=== PATIENT | female | born 1945 | race African-American/Black ===

== ENCOUNTER → 2016-11-13 | Outpatient (CLI) | payer OTHER ==
[~2016-11-13] VITALS: Ht 157.5 cm; Wt 67.6 kg
[~2016-11-13] MED LIST: ASPIRIN EC81 M1 PO; CENTRUM SILVER1 EAC4 PO; CENTRUM SILVER1 EAC6 PO; FLONASE 0.05%50 MCG NASAL; HYDROCODON-ACE1 EACH PO; HYDROCODONE-AP1 EAC6 PO; LIPITOR10 MG PO; LIVALO1 MG PO; MACROBID 100 M100 M1 PO; MEDROLDOSEPACK PO; METAMUCIL0.52 GM PO; MIRALAX255 GM PO; MIRO; NAPROSYN PO; OMEPRAZOLE40 MG PO; PERCOCET 5-3251 EACH PO; PREDNISONE 20 M20 MG PO; PYRIDIUM200 MG PO; RED YEAST RICE600 MG PO; SIMVASTATIN20 MG PO; TRAMADOL 50 MG50 MG PO; TRAZODONE HCL100 MG PO; VITAMIN B-12500 MCG PO; VITAMIN D-32000 UNIT PO; VITAMIN D1000 UNI1; ZANAFLEX4 MG PO; ZOFRAN ODT4 MG PO
--- NOTE | ~2016-11-13 | HPC ---
[facility] [place] [address] PAIN MANAGEMENT CONSULTATION Name: DEYVI BASURTO AVANI Room #: REG Amy Carney#: [id number] Admission: 11/13/16 Attend Phys: Pasha Liriano DO Discharge: Date of : 46 Report #: [id number] THIS REPORT FOR: //name// CC: Libia Liriano HISTORY OF PRESENT ILLNESS: The patient is a very pleasant 70-year-old female typically treated by Dr. Toi Valdes for lumbar radiculopathy secondary to spinal stenosis, component of myofascial pain. Last seen in the pain clinic 09/10/2016. She had an epidural injection at L5-S1 at that time. She prior had a caudal epidural injection in April, which she felt afforded little more relief, though she typically gets good relief with the injection. She had had a total of 5 injections in 2015, October, December, February, April and August. She returns to the pain clinic noting that the last injection again did not afford as good relief as her prior caudal injection, she reports only about 40% for 1 month, typically caudal injections have afforded better relief and longer closer to 3 months. The patient notes pain is in the low back, right greater than left leg. She had a fall a few months ago, lost her footing, did not have any leg weakness or "legs giving out." Rates pain at 4/10 today. Note she does get some relief with medication including, tizanidine 4 mg once or twice a day. Does have a component of muscle strain and tenderness secondary to the slip and fall. PHYSICAL EXAMINATION: Shows a 70-year-old female with BMI of 27.2 kilograms per meter squared. Vital signs are stable as noted in the EMR. She does not use tobacco products. Cranial nerves 2-12 are grossly intact. Pupils equal, reactive to light and accommodation. Extraocular muscles are intact. She does have some diffuse muscle tenderness in the mid to low back area from about shoulder blades down. No discrete trigger points are noted, but does have myofascial pain component here. Rises from a chair using the armrest, modestly antalgic gait, positive straight leg raise on the right with slight decreased strength here. Reviewing MRI from 11/02/2016 notes 4-5 mm anterolisthesis at L5-S1 with and annular tear, canals narrowed to about 5 cm, L4-L5 notes ligamentum flavum hypertrophy with moderate to severe facet arthrosis bilateral and synovitis. Canal is about 6.5 cm. L3-L4 notes ligamentum flavum hypertrophy displacing the L3 nerve roots on the right. This is not associated with significant clinical pathology at this time (L3 root pathology). The patient appears to have more L5 related pathology at this time. ASSESSMENT: 1. Myofascial pain. Recommendation: We will renew tizanidine and add naproxen sodium 375 mg 60 tablets b.i.d. [address] [address] PAIN MANAGEMENT CONSULTATION Name: DEYVI BASURTO AVANI Room #: REG DORY Carney#: [id number] Admission: 11/13/16 Attend Phys: Pasha Liriano DO Discharge: Date of : 46 Report #: [id number] 2. Lumbar radiculopathy secondary to spinal stenosis, acute exacerbation of lumbar radicular pain. Recommendation: Caudal epidural injection under fluoroscopy today. 3. Follow up as needed with Dr. Valdes. PROCEDURE NOTE: Caudal injection under fluoroscopy. PROCEDURE: After written informed consent was obtained, the patient was taken to the fluoroscopy suite and placed in prone position. After sterile prep and drape, skin wheal was raised. A 22-gauge epidural Tuohy needle was placed through the sacroiliitis and into the caudal epidural space. Negative aspiration was accomplished; 1 mL of Omnipaque was injected, which showed spread within the epidural space. This was followed with 80 mg of triamcinolone plus 4 mL of 1% preservative-free Xylocaine. Needle was removed. The area was cleansed, Band-Aids applied. The patient monitored for an appropriate period of time, discharged in good and stable condition. <ELECTRONICALLY SIGNED> By: Pasha Liriano DO 11/16/16 1004 1619 0031 Pasha Liriano DO /nt
[2016-11-13 09:12] VITALS: BP 127/69
== END | disposition home or self-care (01) ==
LOC: PAIN 07:00
DX: M54.16 Radiculopathy, lumbar region (principal); M46.1 Sacroiliitis, not elsewhere classified; M48.06 Spinal stenosis, lumbar region

== ENCOUNTER → 2017-01-11 | Outpatient (CLI) | payer OTHER ==
[~2017-01-11] VITALS: Ht 157.5 cm; Wt 67.0 kg
--- NOTE | ~2017-01-11 | HPC ---
[facility] [place] [place] [address] PAIN MANAGEMENT CONSULTATION Name: DEYVI BASURTO Room #: REG Amy SmithTrueGodwin.#: [id number] Admission: 01/11/17 Attend Phys: Toi Valdes MD Discharge: Date of : 47 Report #: [id number] THIS REPORT FOR: //name// CC: Toi Jacobs DATE OF SERVICE: 01/11/2017 DATE OF REGISTRATION: 01/11/2017. REASON FOR VISIT: Followup visit for low back pain with radiculopathy. SUBJECTIVE: The patient returns to pain clinic today for followup. She has ongoing lumbar radiculopathy. She has had both caudal and epidural injections. Today, her pain is higher up in her back and radiates down more in the L4-L5 distribution. With pain medication, her pain has reduced, but she does not want to keep taking it. She recently fell down from steps helping her mother and aunt the steps. MEDICATIONS: Naprosyn, tizanidine, simvastatin, omeprazole, Metamucil, vitamin D3, and aspirin. PHYSICAL EXAMINATION: GENERAL: Pleasant, alert and oriented. VITAL SIGNS: Blood pressure is 138/65, heart rate is 73, BMI is 27. She has pain and tenderness across her low back. Positive straight leg raising bilaterally. Sensation is intact. Mild weakness noted bilaterally in lower extremities. IMPRESSION: Chronic low back pain with radiculopathy secondary to spinal stenosis, recent exacerbation. PLAN: Epidural steroid injection under fluoroscopic guidance. DESCRIPTION OF PROCEDURE: He was taken to fluoroscopic suite for treatment, placed prone, skin prepped with ChloraPrep. Skin was anesthetized over the L4-L5 interspace. A 20-gauge Tuohy epidural needle advanced into the epidural space with loss of resistance technique. There was no blood in her CSF aspirated. Then, 1 mL of Omnipaque injected. Good spread of dye observed in the epidural space followed by 3 mL of 1% lidocaine mixed with 80 mg of [facility] [address] [place] [address] PAIN MANAGEMENT CONSULTATION Name: DEYVI BASURTO Room #: REG [facility]#: [id number] Admission: 01/11/17 Attend Phys: Toi Valdes MD Discharge: Date of : 46 Report #: [id number] triamcinolone. She tolerated the procedure well and was observed for 45 minutes and discharged. Followup visit planned as needed. By: [id number] [id number] Toi Valdes MD /nt
[2017-01-11 11:25] VITALS: BP 138/65
== END | disposition home or self-care (01) ==
LOC: PAIN 06:53
DX: M48.06 Spinal stenosis, lumbar region (principal)

== ENCOUNTER → 2017-03-31 | Outpatient (CLI) | payer OTHER ==
[~2017-03-31] VITALS: Ht 157.5 cm; Wt 66.7 kg
[~2017-03-31] MED LIST changes: +AMITRIPTYLINE H10 M3 PO
[2017-03-31 10:50] VITALS: BP 109/44
== END | disposition home or self-care (01) ==
LOC: PAIN 07:08
DX: M51.16 Intervertebral disc disorders with radiculopathy, lumbar region (principal); M48.06 Spinal stenosis, lumbar region; G89.29 Other chronic pain; Z88.8 Allergy status to other drugs, medicaments and biological substances; Z79.82 Long term (current) use of aspirin; Z98.890 Other specified postprocedural states

== ENCOUNTER → 2017-05-19 | Outpatient (CLI) | payer OTHER ==
[~2017-05-19] VITALS: Ht 157.5 cm; Wt 67.0 kg
--- NOTE | ~2017-05-19 | HPC ---
[facility] [address] [place] [address] PAIN MANAGEMENT CONSULTATION Name: DEYVI BASURTO AVANI Room #: REG DORY SmithTrueGodwin.#: [id number] Admission: 05/19/17 Attend Phys: Toi Valdes MD Discharge: Date of : 46 Report #: [id number] THIS REPORT FOR: //name// CC: Toi Jacobs DATE OF SERVICE: 05/19/2017 Followup visit for chronic back pain with radiculopathy. HISTORY OF PRESENT ILLNESS: The patient returns to pain clinic today for an injection. She responded favorably to epidural injections performed on an intermittent basis. Her response has been well-documented. She oftentimes receives an excessive 80% to 90% pain relief. Today, she has pain in her mid to low back that radiates around the right T10 and through about T11 distribution. She said that she was helping aunty few months ago when she slid down some steps has had increased back pain with radiation ever since. Pain is a 4/10. She has tried ice, heat, gentle exercises without success. She has been using Tylenol and tizanidine to try and help. Given her previous good response to epidural injection she is here today hopefully that we can provide her with some additional relief with an injection. Consider repeating x-rays today. We will see how she responds to treatment before. MEDICATIONS: Amitriptyline, naproxen, tizanidine, simvastatin, Tylenol, omeprazole, vitamin B12, Metamucil, aspirin. ALLERGIES: CODEINE. PHYSICAL EXAMINATION: She is a reyes 71-year-old pleasant, alert and oriented. No signs of depression, anxiety or overmedication. Blood pressure is 126/61, heart rate 77, respirations 16. She is 5 feet 2 inches, BMI is 27.0. She is able to move from sitting to standing position and ambulate without antalgic features. Examination of the spine reveals midline tenderness and then thoracolumbar junction. Forward flexion and extension both radiate pain around into the right chest wall. There is no local tenderness in rib cage or in the muscles. Sensation is intact. IMPRESSION: Chronic back pain with radiculopathy. She has degenerative disk noted T12-L1 as well as significant lower degenerative disease at L4-L5 and L5-S1. RECOMMENDATIONS: T12-L1 epidural steroid injection under fluoroscopic guidance. Procedure explained the risks and benefits. Higher injection today we will performed trying cover the area [place] [address] PAIN MANAGEMENT CONSULTATION Name: DEYVI BASURTO AVANI Room #: REG [facility] CenterTrue#: [id number] Admission: 05/19/17 Attend Phys: Toi Valdes MD Discharge: Date of : 46 Report #: [id number] PROCEDURE: Using fluoroscopic suite placed prone, skin prepped with ChloraPrep. Skin was anesthetized over the T12-L1 interspace. A 20-gauge two epidural needle advanced in the epidural space in first attempt where 1 mL of Omnipaque injected. Good spread of dye observed in the epidural space. There was some dural but not subarachnoid spread posteriorly along the linear aspect of the right side. I then injected a total of 3 mL of 0.5% lidocaine mixed with 80 mg triamcinolone. She tolerated the procedure well and was taken to recovery room for observation. Followup visit is planned as needed. No medications were ordered. <ELECTRONICALLY SIGNED> By: Toi Valdes MD 05/20/17 1351 1350 [id number] Toi Valdes MD /nt
[2017-05-19 12:45] VITALS: BP 126/61
== END | disposition home or self-care (01) ==
LOC: PAIN 07:20
DX: M54.14 Radiculopathy, thoracic region (principal); Z79.899 Other long term (current) drug therapy; Z88.8 Allergy status to other drugs, medicaments and biological substances; M54.16 Radiculopathy, lumbar region

== ENCOUNTER → 2017-07-08 | Outpatient (CLI) | payer OTHER ==
[~2017-07-08] VITALS: Ht 157.5 cm; Wt 67.6 kg
[~2017-07-08] MED LIST changes: +OXYCODONE-ACET1 EACH PO
--- NOTE | ~2017-07-08 | HPC ---
[facility] [address] [place] [address] PAIN MANAGEMENT CONSULTATION Name: DEYVI BASURTO AVANI Room #: REG [facility] Roxana.#: [id number] Admission: 07/08/17 Attend Phys: Toi Valdes MD Discharge: Date of : 46 Report #: [id number] THIS REPORT FOR: //name// CC: Toi Jacobs DATE OF SERVICE: 07/08/2017 Followup visit for lumbar radiculopathy. The patient is here today for an epidural injection. She has lumbar spinal stenosis at 2 levels, L4-L5 and L5-S1. She also has left paracentral disk protrusion, which causes neural foraminal stenosis. Her L5 nerve root that appears to be the most likely involved, pain is mostly in the left. 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 She does a lot of lifting and caring for them. Her mother will turn 90 in 5 days. She is hoping to feel better for the celebration. I have agreed to provide her with some medication. Previously, I have given her tizanidine and naproxen, but she has taken some oxycodone that she had from her previous surgery and found that it was quite helpful. Given her longstanding pain, I think that the use of an opioid analgesic in lieu of daily nonsteroidal anti-inflammatory drug is worthy of a trial. Both have side effects and risks. If she carefully monitors her medication and uses modest doses, I think that this would be safe and reasonable. To that end, I have given her oxycodone 5/325 and tizanidine 4 mg t.i.d. today PHYSICAL EXAMINATION: She is pleasant, alert and oriented. No signs of overmedication or depression or anxiety. She moves from a sitting to standing position, walks with antalgic features. Her blood pressure is 142/56, heart rate 73. Positive straight leg raising on the left following an L5 distribution. She has no foot drop, but there is some mild weakness noted. Localized tenderness is seen along the sciatic outflow tract. IMPRESSION: Lumbar radiculopathy. RECOMMENDATIONS: Epidural steroid injection under fluoroscopic guidance, left paramedian approach. PROCEDURE: She was taken to fluoroscopic suite, placed prone, skin prepped with ChloraPrep. Skin anesthetized over L4-L5. A 20-gauge Tuohy epidural needle advanced into the epidural space with loss of resistance technique. There was no blood nor CSF aspirated. 1 mL of Omnipaque injected with spread of dye observed into the epidural space along the lateral recess on the left. This was followed by 3 mL of 0.5% lidocaine mixed with 80 mg of triamcinolone. She [address] [address] PAIN MANAGEMENT CONSULTATION Name: DEYVI BASURTO AVANI Room #: REG CLI Rommel#: [id number] Admission: 07/08/17 Attend Phys: Toi Valdes MD Discharge: Date of : 46 Report #: [id number] tolerated the procedure well and was observed for 30 minutes and discharged with a pain score of 0. Follow up as needed. By: 1430 2219 Toi Valdes MD /nt
[2017-07-08 14:57] VITALS: BP 138/68
== END | disposition home or self-care (01) ==
LOC: PAIN 07:17
DX: M54.16 Radiculopathy, lumbar region (principal)

== ENCOUNTER → 2017-10-14 | Outpatient (CLI) | payer OTHER ==
[~2017-10-14] VITALS: Ht 157.5 cm; Wt 66.8 kg
[~2017-10-14] MED LIST changes: +BLACK COHOSH40 M1 PO; +BONIVA150 MG PO; +CALCIUM 600 +1 EAC1 PO; +CRESTOR20 MG PO; +CYMBALTA30 MG PO; +NAMZARIC 28 MG1 EACH PO; +OXYCODONE-ACET1 EAC2 PO; +SENNA-DOCUSATE1 EACH PO; +TURMERIC500 M2 PO; +VITAMIN E400 UNIT PO; +VITAMINC500 PO; +ZANTAC 150MG T150 MG PO
--- NOTE | ~2017-10-14 | H ---
[facility] [address] [place] [address] HISTORY AND PHYSICAL Name: DEYVI BASURTO Room #: REG [facility] M..#: [id number] Admission: 10/14/17 Attend Phys: Toi Valdes MD Discharge: Date of : 46 Report #: [id number] THIS REPORT FOR: //name// CC: Toi Jacobs MD Followup visit for recurring lumbar radiculopathy. The patient returns to pain clinic today for 15-minute followup visit. We have decided they will proceed today with epidural steroid injection. She has responded favorably to these injections and has received no more than 3-4 injections in a single year. Pain is increased by her day-to-day activities. 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 Pain is a 5/10 today. She has had a couple of falls and would be established now as a fall risk due to weakness in her lower extremities. She does not smoke. She is not currently treated for hypertension. She does take oxycodone from our clinic under terms of written opioid agreement, which was reviewed in detail today. MEDICATIONS: Reviewed and reconciled on the electronic medical record. She is on time with her medication for pain. She also uses a muscle relaxant, Zanaflex and naproxen sodium on a p.r.n. basis. Side effects of these medications all reviewed. PHYSICAL EXAMINATION: BMI is 26.9. Her blood pressure 132/71, heart rate 74, respirations 16, oxygen saturation 94. She moves from sitting to standing position, ambulates without difficulty today. She does have some generalized weakness, however, in the lower extremity getting up and down out of the chair. Straight leg raising is positive bilaterally, radiating mostly into the buttocks and posterior aspect of legs. X-rays show spondylolisthesis at L5-S1, neural foraminal narrowing. IMPRESSION: Lumbar radiculopathy, bilateral lower extremity. RECOMMENDATIONS: Epidural steroid injection L4-L5 under fluoroscopic guidance. She has responded beautifully to injections in this location in the past with short term duration. This generally covers the L5-S1 level well. I discussed the MRI with her once again from 2014. I do not think we need to repeat another one at this time given the fact that she continues to respond to treatments and has no intention of surgery while she remained so active care giving. PROCEDURE: Lumbar epidural steroid injection L4-L5 under fluoroscopic guidance. The patient was taken to fluoroscopic suite, placed prone, skin prepped with [address] [address] HISTORY AND PHYSICAL Name: DEYVI BASURTO AVANI Room #: REG [facility]#: [id number] Admission: 10/14/17 Attend Phys: Toi Valdes MD Discharge: Date of : 46 Report #: [id number] ChloraPrep and anesthetized over L4-L5. Using biplanar fluoroscopic views, I advanced needle in the epidural space with loss of resistance. No blood or CSF was aspirated. 1 mL of Omnipaque injected with good spread of dye observed cephalad and caudad in the epidural space, followed by 3 mL of 0.5% lidocaine with 80 mg of triamcinolone. She tolerated the procedure well and was observed for 45 minutes and discharged and followup visit planned as needed for medication management and further injections. <ELECTRONICALLY SIGNED> By: Toi Valdes MD 11/24/17 1640 1457 1537 Toi Valdes MD /nt
[2017-10-14 10:01] VITALS: BP 132/71
== END | disposition home or self-care (01) ==
LOC: PAIN 06:40
DX: M54.16 Radiculopathy, lumbar region (principal); Z79.891 Long term (current) use of opiate analgesic; Z88.6 Allergy status to analgesic agent; Z79.82 Long term (current) use of aspirin; Z79.899 Other long term (current) drug therapy; Z98.890 Other specified postprocedural states

== ENCOUNTER 2017-11-26 09:50 | Emergency (ER) | payer OTHER ==
[~2017-11-26] VITALS: Ht 157.5 cm; Wt 66.7 kg
[~2017-11-26 09:50] MED LIST changes: -BONIVA150 MG PO; -CRESTOR20 MG PO; -CYMBALTA30 MG PO; -NAMZARIC 28 MG1 EACH PO; -SENNA-DOCUSATE1 EACH PO
[2017-11-26] MEDS ORDERED: TRAMADOL 50 MG50 MG PO (10:52)
[2017-11-26 11:26] VITALS: BP 140/59
[2017-12-23] MEDS ORDERED: NAPROSYN PO (11:12)
[2017-12-23] MEDS ORDERED: OXYCODONE-ACET1 EAC2 PO ×2 (11:12→11:33)
[2017-12-23] MEDS ORDERED: OXYCODONE-ACET1 EACH PO (11:12)
[2018-03-07] MEDS ORDERED: CYMBALTA30 MG PO (12:56)
[2018-03-07] MEDS ORDERED: BONIVA150 MG PO (12:56)
[2018-03-07] MEDS ORDERED: OXYCODONE-ACET1 EAC2 PO (13:22)
[2018-03-07] MEDS ORDERED: NAPROSYN PO (13:22)
[2018-03-07] MEDS ORDERED: ZANAFLEX4 MG PO (13:24)
[2018-04-18] MEDS ORDERED: ZANAFLEX4 MG PO (13:05)
[2018-07-06] MEDS ORDERED: OXYCODONE-ACET1 EAC2 PO (13:16)
== END 2017-11-26 11:27 | disposition home or self-care (01) ==
LOC: ER 09:50
DX: M25.512 Pain in left shoulder (principal); W19.XXXA Unspecified fall, initial encounter; Y93.89 Activity, other specified; Y92.89 Other specified places as the place of occurrence of the external cause; Y99.8 Other external cause status; Z88.5 Allergy status to narcotic agent

== ENCOUNTER → 2018-03-07 | Outpatient (CLI) | payer OTHER ==
[~2018-03-07] VITALS: Ht 157.5 cm; Wt 63.9 kg
[~2018-03-07] MED LIST changes: +BONIVA150 MG PO; +CYMBALTA30 MG PO
--- NOTE | ~2018-03-07 | HPC ---
[facility] [address] [place] [address] PAIN MANAGEMENT CONSULTATION Name: DEYVI BASURTO AVANI Room #: REG Amy SmithTrueGodwin.#: [id number] Admission: 03/07/18 Attend Phys: Toi Valdes MD Discharge: Date of : 46 Report #: [id number] THIS REPORT FOR: //name// CC: Toi Jacobs DATE OF SERVICE: 03/07/2018 Followup visit for low back pain with radiculopathy. This is a 3-month interval visit for the patient who has chronic low back pain with radiculopathy and has responded nicely to epidural injections. Her last injection was on 12/23/2017. Pain is now returning. Pain remains in her back radiating into both legs. She has a slight scoliosis. She also has spondylolisthesis at L5-S1 with neural foraminal narrowing, which is the likely underlying cause of her pain. 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 This requires some lifting and she has been having a bit of pain in the upper back. We talked about body mechanics today. She takes naproxen sodium twice a day. We have discussed side effects of nonsteroidal anti-inflammatory drugs. She is on Percocet 06/29/2005, taking no more than 2 tablets a day for breakthrough pain. She safeguards her medications carefully. She has an opioid agreement signed in her chart. She understands the CDC guidelines. She is careful with medications and keeps them protected. PHYSICAL EXAMINATION: Pleasant, alert and oriented, soft spoken, in no acute distress. Blood pressure today is 135/88, heart rate is 80. She moves from sitting to standing position, ambulates without a cane or walking device. She is not a fall risk. She has some mild osteoarthritic pain in the hips bilaterally. Localized tenderness noted there. Straight leg raising is positive bilaterally and lower extremities sensory and strength is within normal limits. IMPRESSION: Chronic low back pain with spondylolisthesis at L5-S1 with lumbar radiculopathy. She would like to avoid any surgical intervention and is grateful for the relief she gets from epidural injections provided 4 times a year. PROCEDURE: Epidural steroid injection at L4-L5 under fluoroscopic guidance. She was taken to fluoroscopic suite, placed prone, skin prepped with ChloraPrep. Skin anesthetized over the L4-L5 interspace. A 20-gauge Tuohy epidural needle, 4-1/2 inch length needle, was advanced into the epidural space on the first attempt. There was no blood or CSF aspirated. 1 mL of Omnipaque injected. [address] [address] PAIN MANAGEMENT CONSULTATION Name: DEYVI BASURTO AVANI Room #: REG DORY Schmidt.#: [id number] Admission: 03/07/18 Attend Phys: Toi Valdes MD Discharge: Date of : 46 Report #: [id number] Good spread of dye observed in the epidural space followed by 3 mL of 0.5% lidocaine mixed with 80 mg triamcinolone. She tolerated the procedure well and was taken to recovery room for observation. Followup is scheduled for 3-4 months. Prescriptions provided for her pain medication under terms of our written opioid agreement. She will stay safely, keep her medication under lock and clark. By: 1320 1343 Toi Valdes MD /nt
[2018-03-07 12:46] VITALS: BP 124/51
== END | disposition home or self-care (01) ==
LOC: PAIN 07:18
DX: M54.16 Radiculopathy, lumbar region (principal); G89.29 Other chronic pain; M43.16 Spondylolisthesis, lumbar region; M48.061 Spinal stenosis, lumbar region without neurogenic claudication; Z88.8 Allergy status to other drugs, medicaments and biological substances; Z79.82 Long term (current) use of aspirin; Z98.890 Other specified postprocedural states; Z79.899 Other long term (current) drug therapy; Z79.891 Long term (current) use of opiate analgesic

== ENCOUNTER → 2018-04-18 | Outpatient (CLI) | payer OTHER ==
[~2018-04-18] VITALS: Ht 157.5 cm; Wt 62.3 kg
--- NOTE | ~2018-04-18 | HPC ---
[facility] [address] [place] [address] PAIN MANAGEMENT CONSULTATION Name: DEYVI BASURTO AVANI Room #: REG [facility]..#: [id number] Admission: 04/18/18 Attend Phys: Toi Valdes MD Discharge: Date of : 46 Report #: [id number] THIS REPORT FOR: //name// CC: Toi Jacobs MD Followup visit for low back pain with radiculopathy. This is a followup visit for the patient who does well with epidural injections. She is pushing the limits of the Medicare allowable of up to 3 injections in a 6-month period of time. We talked about other options for treating her severe radiculopathy. She has pain that radiates into her legs, more significantly at each visit. She is a good candidate for spinal cord stimulation. She also might be a candidate for lumbar laminectomy with diskectomy. At L5-S1, she has a fairly large superimposed central left paracentral disk protrusion, and I had suggested surgery to her in the past. Her role in caring for her mother and her aunt is well documented through the record, and she does not feel that she has time nor is able to go to surgery. At any rate, she has done fairly well with epidural injections as a tool to help her remain functional and active. I have also given her pain medications. She has been tapering her use of oxycodone. She still finds tizanidine taken up to 2-3 times a day as a helpful medication that help with the back spasm. A brace has been ordered for her, and she wears it at home, but it is difficult to wear with clothing, especially during hot weather, so she is unable to get the benefit from that. We talked about anti-inflammatory drug at some length, and we reviewed those medicines at last visit and again today. She uses naproxen carefully understanding side effects with those medications as well. PQRS review shows that this is a reyes 72-year-old. She is not a fall risk. She is on an opioid agreement with her group and is at low risk for addiction. She takes her medications cautiously under terms of our written agreement. She denies any significant side effects. She is on no blood thinners. She is on no treatment for hypertension. MEDICATIONS: Reviewed and reconciled. IMPRESSION: Chronic low back pain with radiculopathy secondary to spondylolisthesis at L5-S1, and she also has a large disk protrusion to the left. PROCEDURE: Epidural steroid injection under fluoroscopic guidance. She was taken to fluoroscopic suite, placed prone, skin prepped with ChloraPrep. Skin anesthetized over the L4-L5 interspace, left of midline. A 20-gauge [address] [address] PAIN MANAGEMENT CONSULTATION Name: DEYVI BASURTO AVANI Room #: REG CLAmy Carney#: [id number] Admission: 04/18/18 Attend Phys: Toi Valdes MD Discharge: Date of : 47 Report #: [id number] epidural needle advanced first attempt in the epidural space with loss of resistance technique. There was no blood or CSF aspirated. 1 mL of Omnipaque was injected. Good spread of dye observed, followed by 3 mL of 0.5% lidocaine mixed with 80 mg triamcinolone. She tolerated the procedure well and was observed for 45 minutes and discharged. Follow up as needed. <ELECTRONICALLY SIGNED> By: Toi Valdes MD 04/20/18 1622 1353 1502 Toi Valdes MD /nt
[2018-04-18 12:47] VITALS: BP 119/52
== END | disposition home or self-care (01) ==
LOC: PAIN 06:26
DX: M54.16 Radiculopathy, lumbar region (principal); M43.16 Spondylolisthesis, lumbar region; G89.29 Other chronic pain; M51.36 Other intervertebral disc degeneration, lumbar region; Z98.890 Other specified postprocedural states; Z88.8 Allergy status to other drugs, medicaments and biological substances; Z79.82 Long term (current) use of aspirin; Z79.899 Other long term (current) drug therapy

== ENCOUNTER → 2018-07-06 | Outpatient (CLI) | payer OTHER ==
[~2018-07-06] VITALS: Ht 157.5 cm; Wt 61.1 kg
--- NOTE | ~2018-07-06 | HPC ---
[facility] [address] [place] [address] PAIN MANAGEMENT CONSULTATION Name: DEYVI BASURTO AVANI Room #: REG DORY [facility].#: [id number] Admission: 07/06/18 Attend Phys: Toi Valdes MD Discharge: Date of : 47 Report #: [id number] THIS REPORT FOR: //name// CC: Toi Jacobs DATE OF SERVICE: 07/06/2018 Followup visit for chronic low back pain with radiculopathy secondary to anterolisthesis of L5 on S1. The patient returns to Pain Clinic today for an epidural injection. Her last injection was in March. She continues to report recurring benefit from the injections that last anywhere from 3-4 months. I tried to avoid overuse of the injections, but her goals are quite clearly outlined within the treatment. She does not want surgery. She needs to continue to care for her mother and her aunt. She tries to get through each day carefully using good body mechanics when she does the lifting and caring and caregiving. I am well familiar with her home situation and I care for both her mother and her aunt. We talked about spinal cord stimulation in the past, reviewed it briefly again today. I ordered a brace for her in the past, but she does not use it routinely. All side effects of medication were reviewed and reconciled. PQRS shows that she is not a fall risk, has an opioid agreement, complains of some osteoarthritis. She has lost some weight recently and BMI now continues to drop and is currently at 24.6. Pain intensity 5/10. Her opioid risk tool is quite low. I allowed her to take some pain medication under terms of our written agreement. IMPRESSION: Chronic low back pain with radiculopathy secondary to spondylolisthesis L5-S1 with large disk protrusion. PROCEDURE: Epidural steroid injection under fluoroscopic guidance. She was taken to fluoroscopic suite. She was placed prone. Skin was prepped with ChloraPrep. Skin anesthetized over the L4-L5 interspace. A 20-gauge Tuohy epidural needle advanced first attempt in the epidural space with loss of resistance technique. There was no blood or CSF aspirated. 1 mL of Isovue was injected. Good spread of dye observed into the epidural space followed by 3 mL of 0.5% lidocaine with 80 mg of triamcinolone. She tolerated the procedure well, was observed for 45 [place] [address] PAIN MANAGEMENT CONSULTATION Name: DEYVI BASURTO AVANI Room #: REG DORY Carney#: [id number] Admission: 07/06/18 Attend Phys: Toi Valdes MD Discharge: Date of : 47 Report #: [id number] Follow up as needed. By: [id number] Toi Valdes MD /nt
[2018-07-06 12:47] VITALS: BP 116/54
== END | disposition home or self-care (01) ==
LOC: PAIN 06:53
DX: M51.16 Intervertebral disc disorders with radiculopathy, lumbar region (principal); M43.16 Spondylolisthesis, lumbar region; G89.29 Other chronic pain; M19.90 Unspecified osteoarthritis, unspecified site; Z88.8 Allergy status to other drugs, medicaments and biological substances; Z79.899 Other long term (current) drug therapy; Z79.82 Long term (current) use of aspirin

== ENCOUNTER 2018-07-26 09:47 | Emergency (ER) | payer OTHER ==
[~2018-07-26] VITALS: Ht 157.5 cm; Wt 61.2 kg
[2018-07-26 09:57] VITALS: BP 129/51
[2018-07-26] MEDS ORDERED: NAMZARIC 28 MG1 EACH PO (10:39)
[2018-07-26] MEDS ORDERED: CRESTOR20 MG PO (10:39)
[2018-07-26] MEDS ORDERED: MEDROLDOSEPACK PO (11:00)
[2018-07-26] MEDS ORDERED: SENNA-DOCUSATE1 EACH PO (11:00)
== END 2018-07-26 10:54 | disposition home or self-care (01) ==
LOC: ER 09:47
DX: M54.42 Lumbago with sciatica, left side (principal); G89.29 Other chronic pain; Z88.5 Allergy status to narcotic agent; Z90.710 Acquired absence of both cervix and uterus

== ENCOUNTER → 2018-08-04 | Outpatient (CLI) | payer OTHER ==
[~2018-08-04] VITALS: Ht 157.5 cm; Wt 58.4 kg
[~2018-08-04] MED LIST changes: +CRESTOR20 MG PO; +NAMZARIC 28 MG1 EACH PO; +SENNA-DOCUSATE1 EACH PO
--- NOTE | ~2018-08-04 | HPC ---
[facility] [address] [address] PAIN MANAGEMENT CONSULTATION Name: DEYVI BASURTO AVANI Room #: REG [facility].#: [id number] Admission: 08/04/18 Attend Phys: Toi Valdes MD Discharge: Date of : 47 Report #: [id number] THIS REPORT FOR: //name// CC: Toi Jacobs MD DATE OF SERVICE: 08/04/2018 Followup visit for chronic low back pain with radiculopathy, anterolisthesis of L5 on S1 and management of high risk medications. The patient returns to the pain clinic today and has been losing weight over the course of the last several months. My chart reflects her caregiving of her mother and aunt. Her mother has been in the hospital. She has been doing double duty going back and forth between home and hospital. Her mother has had urosepsis. Her BMI has steadily been declining. She has days where she forgets to eat. I think this is related to stress and not so much to underlying disease. I checked her BMI in 04/2016, 2 years ago and it was 27.2 at that time. She is now down about 20 pounds with a BMI of 23.6. The decline has been steady. She was recently seen in the Emergency Room. She was given a Medrol Dosepak, she completed. MEDICATIONS: Complete list of medication includes Crestor, Zanaflex, Boniva, Cymbalta, Senokot-S, Black Cohosh, vitamin C, turmeric, Caltrate 600, vitamin D, Zantac, omeprazole, vitamin B and vitamin D3. ALLERGIES: CODEINE. PHYSICAL EXAMINATION: GENERAL: She has lost a fair amount of weight, but she looks good. VITAL SIGNS: Her blood pressure is 145/70, heart rate 83 and respirations 16. BMI is ____. She moves from sitting to standing position independently. MUSCULOSKELETAL: She walks with a bit of a nrut-zu-hlei gait. She has pain with forward flexion and extension. Straight leg raising reproduces pain bilaterally in the legs following an L5-L4 distribution. She has tenderness in the buttock and posterior thighs. She has normal sensation. Deep tendon reflexes are normal in the knees and ankles. PQRS, she does not describe osteoarthritis. Her blood pressure is 145/70, heart rate 83, BMI is 23.6. Pain intensity is 5. She is not a fall risk. She is on no blood thinners. She is not treated for hypertension. She is on an opioid [address] [address] PAIN MANAGEMENT CONSULTATION Name: DEYVI BASURTO AVANI Room #: REG [facility].#: [id number] Admission: 08/04/18 Attend Phys: Toi Valdes MD Discharge: Date of : 47 Report #: [id number] agreement. She denies use of tobacco. Denies use of alcohol. IMPRESSION: 1. Chronic intractable low back pain. She has a large herniated disk at L5-S1 and a spondylolisthesis resulting in radiculopathy. 2. Management of high risk medications. 3. Weight loss possibly stress related from caregiver burnout. 4. Upper back and shoulder pain. RECOMMENDATIONS: I will continue her medication per terms of our written agreement. She had a misplaced prescription. I could not find it on the prescription drug monitoring program. Two new prescriptions written for today and for release in 4 weeks. Epidural injections have been performed to the limits allowed by Medicare. She has responded favorably to these, but would like to hold off on an injection today. She has one remaining injection in 2018. She will follow up with Dr. Libia Jacobs. I will try and discuss her care with Dr. Jacobs. I presented her as a case of strength and family support at a recent conference. I told her I always been an admirer the way that she maintained her own family and thought outside of herself. Hopefully, the medication provided for her today will allow her to continue to do so. By: [id number] Toi Valdes MD /nt
[2018-08-04 12:34] VITALS: BP 145/70
== END ==
LOC: PAIN 06:29
DX: G89.29 Other chronic pain (principal); M54.16 Radiculopathy, lumbar region; R63.4 Abnormal weight loss; M54.6 Pain in thoracic spine; M25.519 Pain in unspecified shoulder; Z79.899 Other long term (current) drug therapy

== ENCOUNTER 2018-09-04 10:05 | Emergency (ER) | payer OTHER ==
[~2018-09-04] VITALS: Ht 157.5 cm; Wt 57.1 kg
--- NOTE | ~2018-09-04 | EKG ---
[address] [address] ELECTROCARDIOGRAM REPORT Name: DEYVI BASURTO Room #: DEP [facility]#: [id number] Admission: 09/04/18 Attend Phys: Discharge: 09/04/18 Date of : 47 Report #: [id number] THIS REPORT FOR: //name// [facility] ED Test Date: 2018-09-04 Test Time: 11:33:47 Pat Name: DEYVI BASURTO Department: Room: Gender: F Label Stitcher: [facility] : 1945 Requested By: Rik Levy Order Number: [id number] MD: Jakob Moseley Measurements Intervals [place] Rate: 68 P: 17 SD: 145 QRS: 8 QRSD: 111 T: 38 QT: 399 QTc: 425 Interpretive Statements Sinus rhythm Compared to ECG 11/07/2000 14:17:16 ST (T wave) deviation no longer present Electronically Signed On 09-04-2018 20:46:27 ICE SKATING TEACHER by Jakob Moseley [email or web address] <ELECTRONICALLY SIGNED> By: Jakob Moseley MD 09/04/18 2046 1133 113 Jakob Moseley MD /ALVARADO
[2018-09-04 11:18] LABS: ABSOLUTE NEUTROPHILS 5.7 thou/uL (1.4-8.2); BASOPHILS 0.5 % (0.0-2.0); EOSINOPHILS 1.2 % (0.0-3.0); HEMATOCRIT 40.3 % (37.0-47.0); HEMOGLOBIN 12.9 gm/dL (12.0-15.0); LYMPHOCYTES 15.6 % (24.0-44.0); MCH 29.1 pg (26.0-34.0); MONOCYTES 9.1 % (1.0-8.0); PLATELET COUNT 344 thou/uL (150-400); POLYS 73.6 % (36.0-66.0); RBC 4.42 mil/uL (4.20-5.00); RDW 14.6 % (10.5-14.5); WBC 7.7 thou/uL (4.0-11.0)
[2018-09-04 11:27] LABS: ANION GAP 7 mmol/L (7-16); BUN 12 mg/dL (7-18); CALCIUM 9.8 mg/dL (8.5-10.1); CHLORIDE 106 mmol/L (98-107); CO2 28 mmol/L (21-32); CREATININE 0.7 mg/dL (0.6-1.0); GLUCOSE 97 mg/dL (74-106); POTASSIUM 3.6 mmol/L (3.5-5.1); SODIUM 141 mmol/L (136-145)
[2018-09-04 11:35] LABS: TROPONIN-I <0.06 ng/mL (<0.06)
[2018-09-04 13:00] VITALS: BP 113/50
[2018-09-08] MEDS ORDERED: OXYCODONE-ACET1 EAC2 PO ×2 (09:50)
[2018-09-08] MEDS ORDERED: ZANAFLEX4 MG PO ×2 (10:01)
== END 2018-09-04 13:00 | disposition home or self-care (01) ==
LOC: ER 10:05
PROVIDERS: Physician Assistant
DX: R20.2 Paresthesia of skin (principal); Z88.5 Allergy status to narcotic agent; Z90.89 Acquired absence of other organs; Z90.49 Acquired absence of other specified parts of digestive tract; Z90.710 Acquired absence of both cervix and uterus

== ENCOUNTER → 2018-09-08 | Outpatient (CLI) | payer OTHER ==
[~2018-09-08] VITALS: Ht 157.5 cm; Wt 61.2 kg
--- NOTE | ~2018-09-08 | HPC ---
[facility] [address] [address] PAIN MANAGEMENT CONSULTATION Name: DEYVI BASURTO AVANI Room #: REG [facility].#: [id number] Admission: 09/08/18 Attend Phys: Toi Valdes MD Discharge: Date of : 47 Report #: [id number] THIS REPORT FOR: //name// CC: Toi Jacobs MD DATE OF SERVICE: 09/08/2018 The patient is here today in the pain clinic for treatment of her chronic low back pain. I reminded her that she has been an inspiration to our clinic and then told her that I had used her as an example of someone who has been able to rise above her chronic pain and continue lead a meaningful life. She is grateful for the words, but she does not feel as though her pain is well controlled at the moment. She is required to provide significant day-to-day care for her mother and her aunt, the three of them living together in the same home. Their sisters are in their 90s. They need help with movement throughout the house, hygiene and transfers to bed. They both are also chronically in pain and require assistance with medications and other day-to-day activities. The patient is glued and holds this altogether. She suffers from her own mid to low back pain radiating down into the legs. This is known to be related to a herniated disk and she has bilateral radiculopathy. She is in no position at this time to take time away from her daily tasks with family to do anything other than manage symptoms as we have been with medication and injections. Fortunately, she responds to epidural injections receiving often x 2-3 months of adequate relief. This is far from perfect, but it does help her with standing, walking, bending and lifting. In addition to her injection, she uses medication under terms of written opioid agreement. I provided with oxycodone 10/325 one tablet twice daily. Often times a third tablet would be helpful in the evening and I have agreed to provide that to her. This will take her morphine milligram equivalence to 45 MME still within the 0-50 range, considered low dose by the CDC guideline. In addition to medication and injections, she keeps moving, uses distraction and repositioning. She is a noninsulin dependent diabetic. SOCIAL HISTORY: Also, should reflect that her mother has recently been in the hospital and has been suggested a candidate for hospice. I had a palliative care discussion with her today for about 20 minutes about hospice. There are many misconceptions. I let her know that I was [place] [address] PAIN MANAGEMENT CONSULTATION Name: DEYVI BASURTO AVANI Room #: REG DORY Carney#: [id number] Admission: 09/08/18 Attend Phys: Toi Valdes MD Discharge: Date of : 47 Report #: [id number] that the use of hospice does not mean that her mother is immediately dying, but it does suggest that more than one physician has indicated that her life expectancy may be less than 6 months. The benefits in hospice are many for her. There would be a nurse at her kessler and call. There would be a nurse to come in once a week and then a caregiver that would come in once or twice a week to help with bathing. All durable medical equipment and medications for comfort would be provided. It also was an opportunity for me to discuss how her mother and her aunt's life may come to an end. They should discuss what their values are and whether or not they would want aggressive treatment should she be found unconscious in bed. I discussed clearly what the options for end of life care were including comfort measures only provided in the home through hospice or aggressive care with the ambulance ride, CPR, intubation and ICU stays. She understands that these are her decisions not mine, but she can use her family values to help come up with decisions that are in keeping with her mother and her aunt. Questions were asked and answered. PHYSICAL EXAMINATION: VITAL SIGNS: Blood pressure is 108/52, heart rate 81, respirations 14, BMI is 24. EXTREMITIES: She moves from sitting to standing position. Her gait is antalgic. She bends with difficulty and her back extension reproduces pain in her back and bilaterally into her lower legs following an L4-L5, L5-S1 distribution. Sensation is intact. She has generalized weakness of the lower extremities. IMPRESSION: 1. Chronic intractable low back pain with radiculopathy. 2. Caregiver with burdens. 3. Type 2 diabetes. RECOMMENDATIONS: 1. Repeat epidural steroid injection. 2. Oxycodone 10/325 t.i.d. under terms of written agreement. PROCEDURE: She was taken to fluoroscopic suite for treatment, placed prone, skin prepped with ChloraPrep. Skin anesthetized over the L4-L5 interspace to the left of midline, 20-gauge Tuohy epidural needle advanced in first attempt into the epidural space with loss of resistance. No blood or CSF aspirated. 1 mL of Omnipaque injected. Good spread of dye observed into the epidural space followed by 3 mL of 0.5% lidocaine mixed with 80 mg triamcinolone. She tolerated the procedure well and was observed for 45 minutes and discharged. [address] [address] PAIN MANAGEMENT CONSULTATION Name: DEYVI BASURTO Room #: REG [facility]#: [id number] Admission: 09/08/18 Attend Phys: Toi Valdes MD Discharge: Date of : 47 Report #: [id number] Followup as needed in 1-2 months for medication management and epidural injections as needed. By: [id number] Toi Valdes MD /nt
[2018-09-08 08:54] VITALS: BP 108/52
== END | disposition home or self-care (01) ==
LOC: PAIN 08:34
DX: M54.16 Radiculopathy, lumbar region (principal); G89.29 Other chronic pain; E11.9 Type 2 diabetes mellitus without complications; Z79.891 Long term (current) use of opiate analgesic; Z88.8 Allergy status to other drugs, medicaments and biological substances; Z79.899 Other long term (current) drug therapy; Z98.890 Other specified postprocedural states

== ENCOUNTER 2018-11-11 07:58 | Emergency (ER) | payer OTHER ==
[~2018-11-11] VITALS: Ht 160 cm; Wt 74.8 kg
--- NOTE | 2018-11-11 08:21 | EKG ---
[address] [place] [address] [place] [address] ELECTROCARDIOGRAM REPORT Name: DEYVI BASURTO Room #: [facility]..#: [id number] Admission: Attend Phys: Discharge: Date of : 47 Report #: [id number] THIS REPORT FOR: //name// [facility] ED Test Date: 2018-11-11 Test Time: 08:04:21 Pat Name: DEYVI BASURTO Department: Room: Gender: F Transmitter Chief: JACE : 1945 Requested By: Davie Narvaez Order Number: [id number] MD: Elgin Key Measurements Intervals [place] Rate: 65 P: 45 AK: 151 QRS: -1 QRSD: 127 T: 32 QT: 384 QTc: 400 Interpretive Statements Sinus rhythm Nonspecific T wave abnormality Baseline wander in lead(s) V1,V2,V6 Compared to ECG 09/04/2018 11:33:47 T-wave abnormality now present Electronically Signed On 11-11-2018 8:21:27 VP [employer]ERS[employer] by Elgin Key [email or web address] <ELECTRONICALLY SIGNED> By: Elgin Key MD, [facility] 11/11/18820 3 3 Elgin Key MD, FACC /EPI
[2018-11-11 08:32] LABS: ABSOLUTE NEUTROPHILS 7.1 thou/uL (1.4-8.2); BASOPHILS 0.4 % (0.0-2.0); EOSINOPHILS 0.3 % (0.0-3.0); HEMATOCRIT 39.7 % (37.0-47.0); HEMOGLOBIN 13.5 gm/dL (12.0-15.0); LYMPHOCYTES 10.9 % (24.0-44.0); MCH 30.9 pg (26.0-34.0); MCV 90.9 fL (80.0-100.0); MONOCYTES 6.8 % (1.0-8.0); PLATELET COUNT 298 thou/uL (150-400); POLYS 81.6 % (36.0-66.0); RBC 4.37 mil/uL (4.20-5.00); RDW 13.7 % (10.5-14.5); WBC 8.8 thou/uL (4.0-11.0)
[2018-11-11 08:39] LABS: ANION GAP 9 mmol/L (7-16); BUN 10 mg/dL (7-18); CALCIUM 9.6 mg/dL (8.5-10.1); CHLORIDE 103 mmol/L (98-107); CO2 28 mmol/L (21-32); CREATININE 0.6 mg/dL (0.6-1.0); GLUCOSE 99 mg/dL (74-106); POTASSIUM 3.6 mmol/L (3.5-5.1); SODIUM 140 mmol/L (136-145)
[2018-11-11 08:48] LABS: TROPONIN-I <0.06 ng/mL (<0.06)
[2018-11-11 09:28] VITALS: BP 125/52
== END 2018-11-11 09:35 | disposition home or self-care (01) ==
LOC: ER 07:58
PROVIDERS: Emergency Medicine
DX: R20.0 Anesthesia of skin (principal); R20.2 Paresthesia of skin; E11.9 Type 2 diabetes mellitus without complications; Z88.5 Allergy status to narcotic agent; Z90.89 Acquired absence of other organs; Z90.49 Acquired absence of other specified parts of digestive tract; Z90.710 Acquired absence of both cervix and uterus

== ENCOUNTER → 2018-12-08 | Outpatient (CLI) | payer OTHER ==
[~2018-12-08] VITALS: Ht 157.5 cm; Wt 60.3 kg
[~2018-12-08] MED LIST changes: +NAMENDA 10 MG T10 MG PO
--- NOTE | ~2018-12-08 | HPC ---
[facility] [address] [address] PAIN MANAGEMENT CONSULTATION Name: DEYVI BASURTO AVANI Room #: REG DORY Schmidt.#: [id number] Admission: 12/08/18 ������������������ Attend Phys: Toi Valdes MD Discharge: ������������������ Date of : 47 Report #: [id number] THIS REPORT FOR: //name// CC: Toi Jacobs MD DATE OF SERVICE: 12/08/2018 Followup visit for chronic low back pain with radiculopathy. The patient returns to Pain Clinic today complaining of pain mostly in her legs. She also has pain in her neck that radiates some into her arms with numbness and tingling. She has a new MRI, which I have reviewed. There is significant bulging in both locations, spinal stenosis, and neural foraminal narrowing in the cervical and lumbar region. Most important issue for her now is her mobility. She would like a lumbar epidural injection. She has always had reasonable relief from her injections. Her last injection was performed 3 months ago. In 2018, it is noted that she underwent an injection about every 2 months. We will try to remain cautious about her injections maintaining careful adherence to the Medicare guidelines. PQRS review is completed. She denies osteoarthritis. Most of her pain is in her spine with neural foraminal stenosis, radicular in nature. She has pain intensity at her best is a 3 and 6-9/10 at its worst. She has not fallen nor is she considered a fall risk. She is on no blood thinners and is not treated for hypertension. All medications from the electronic medical records have been reviewed and reconciled. Please note those medications. They include pain medication provided through our clinic, oxycodone 10/325, one tablet 3 times daily for an MME of 45. We have discussed reducing this dose to twice daily if possible. She will continue to safeguard these medications carefully. She has completed an opioid risk tool and is considered at low risk. She denies use of tobacco and alcohol. PHYSICAL EXAMINATION: A reyes female, pleasant, alert and oriented. No signs of overmedication. She is 5 feet 2 inches, 133 pounds, BMI 24.3. Blood pressure 122/50, heart rate 68, respiration 14. Gait is antalgic. She has tenderness across the low back, decreased range of motion in flexion and extension. Positive straight leg raising is noted bilaterally, worse on the left than the right. IMPRESSION: Lumbar radiculopathy. RECOMMENDATIONS: Epidural steroid injection under fluoroscopic guidance. [address] [address] PAIN MANAGEMENT CONSULTATION Name: DEYVI BASURTO AVANI Room #: REG [facility] Roxana.#: [id number] Admission: 12/08/18 ������������������ Attend Phys: Toi Valdes MD Discharge: ������������������ Date of : 47 Report #: [id number] PROCEDURE: She was taken to fluoroscopic suite, placed prone. Skin prepped with ChloraPrep. Skin anesthetized over the L4-L5 interspace. A 20-gauge Tuohy epidural needle advanced in first attempt in the epidural space with loss of resistance. There was no blood or CSF aspirated. 1 mL of Omnipaque was injected. Good spread of dye observed in the epidural space followed by 3 mL of 0.5% lidocaine mixed with 80 mg of triamcinolone. She tolerated the procedure well, was observed for 45 minutes and discharged. Follow up as needed. ��������������������������������������������� ���������������������������������������� By: ��������������������������������������������� 1551 [id number] Toi Valdes MD /nt
[2018-12-08 14:10] VITALS: BP 122/50
--- NOTE | 2018-12-08 14:23 | NUR ---
Pain Clinic Assessment: 1. History of Osteoarthritis: Not Applicable History of Rheumatoid Arthritis: Not Applicable 2. Height: 5 ft. 2 in. 157.5 cm. Weight: 133.0 lb. oz. 60.328 kg. Patient's BMI: 24.3 3. Vital Signs: BP: 122/50 Pulse: 68 Resp: 14 Temp: 02 Sat: 100 ECG Mon: 4. Pain Intensity: 3 5. Fall Risk: Dizziness: N Needs help standing or walking: N Fallen in the last 3 months: N Fall risk comments: 6. Patient on Blood Thinner: None 7. History of Hypertension: N 8. Opioid Therapy greater than 6 weeks: N Opiate Contract Signed: 9. Risk Assessment Tool Provided: low 10. Functional Assessment Tool: 11. Recreational Drug Use: Never Drug Type: Tobacco Use: Never Smoker Tobacco Type: Amount or Packs/day: How Many Years: Alcohol Use: No Frequency: Quant:
== END | disposition home or self-care (01) ==
LOC: PAIN 07:02
DX: M54.16 Radiculopathy, lumbar region (principal); G89.29 Other chronic pain; Z88.6 Allergy status to analgesic agent; Z79.891 Long term (current) use of opiate analgesic

== ENCOUNTER → 2019-01-09 | Outpatient (CLI) | payer OTHER ==
[~2019-01-09] VITALS: Ht 157.5 cm; Wt 60.8 kg
--- NOTE | ~2019-01-09 | HPC ---
[facility] [address] [address] PAIN MANAGEMENT CONSULTATION Name: DEYVI BASURTO AVANI Room #: REG DORY [facility].#: [id number] Admission: 01/09/19 ������������������ Attend Phys: Toi Valdes MD Discharge: ������������������ Date of : 47 Report #: [id number] THIS REPORT FOR: //name// CC: Toi Jacobs DATE OF SERVICE: 01/09/2019 Followup visit for chronic low back pain with lumbar radiculopathy. The patient returns to pain clinic today for cervical epidural injection. She complained of pain in her neck that radiates into her arms bilaterally. She has some weakness. Pain is likely worse on the right. She has triceps weakness and difficulty with correspondence dictator. She thinks she may have aggravated her pain taking care of her aunt and her mother. Her role as caregiver is well documented throughout the record. She has always responded favorably to injections. We discussed the role of the epidural injection today for cervical radiculopathy. PQRS: She is a reyes 73-year-old. She has lost a fair amount of weight. Her BMI is now down to 24.5. She says that this is stress related. She denies osteoarthritis, but does suffer from degenerative spinal disease, which causes radiculopathy. She is not a fall risk nor has she recently fallen. She is on no blood thinners nor does she takes medication for hypertension. I do provide her currently with some oxycodone 10/325, #60 tablets. She was last provided medication in August and she uses it only for severe pain. Her MME on some days is 0. Another, she might take 1 tablet, perhaps 2, maximum MME would be 30. She has signed an opioid agreement. She denies use of tobacco or alcohol. PHYSICAL EXAMINATION: GENERAL: She is a pleasant female, alert and oriented. VITAL SIGNS: Again, her weight is down slightly to 134. BMI 24.5. Blood pressure 146/78, heart rate 76. MUSCULOSKELETAL: She has neck pain with flexion, extension, rotation and fndg-ng-kpho tilt. Extension reproduces a sensation of tingling and numbness into the arms bilaterally, right worse than left. She has weakness in the triceps on the right compared to the left. Exercise Physiologist strength is also diminished on the right compared to the left. Deep tendon reflexes are 2+ biceps on the right and left. Diminished on the triceps reflex on the left and right. Brachioradialis reflexes normal. IMPRESSION: Cervical radiculopathy. RECOMMENDATION: Proceed with cervical epidural injection, C7-[place] [address] PAIN MANAGEMENT CONSULTATION Name: DEYVI BASURTO AVANI Room #: REG Amy Carney#: [id number] Admission: 01/09/19 ������������������ Attend Phys: Toi Valdes MD Discharge: ������������������ Date of : 47 Report #: [id number] DESCRIPTION OF PROCEDURE: After informed consent, the patient was taken to fluoroscopic suite. She was placed prone, skin prepped with ChloraPrep. Skin anesthetized over C7-T1. A 20-gauge Tuohy epidural needle was advanced first attempt in the epidural space with loss of resistance technique. There was no blood or CSF aspirated. 1 mL of Omnipaque was injected. Good spread of dye was observed in the epidural space followed by 3 mL of 0.5% lidocaine mixed with 80 mg of triamcinolone. She tolerated the procedure well. She was observed for 45 minutes in recovery room and discharged with a pain score of 0. Follow up as needed. ��������������������������������������������� ���������������������������������������� By: ��������������������������������������������� 1743 [id number] Toi Valdes MD /nt
[2019-01-09 12:42] VITALS: BP 146/78
--- NOTE | 2019-01-09 12:45 | NUR ---
Pain Clinic Assessment: 1. History of Osteoarthritis: Not Applicable History of Rheumatoid Arthritis: Not Applicable 2. Height: 5 ft. 2 in. 157.5 cm. Weight: 134.0 lb. oz. 60.782 kg. Patient's BMI: 24.5 3. Vital Signs: BP: 146/78 Pulse: 76 Resp: 16 Temp: 02 Sat: 98 ECG Mon: 4. Pain Intensity: 3-4 5. Fall Risk: Dizziness: N Needs help standing or walking: N Fallen in the last 3 months: N Fall risk comments: 6. Patient on Blood Thinner: None 7. History of Hypertension: N 8. Opioid Therapy greater than 6 weeks: N Opiate Contract Signed: 9. Risk Assessment Tool Provided: low 10. Functional Assessment Tool: 11. Recreational Drug Use: Never Drug Type: Tobacco Use: Never Smoker Tobacco Type: Amount or Packs/day: How Many Years: Alcohol Use: No Frequency: Quant:
== END | disposition home or self-care (01) ==
LOC: PAIN 07:05
DX: M54.12 Radiculopathy, cervical region (principal); G89.29 Other chronic pain; I10 Essential (primary) hypertension; Z79.891 Long term (current) use of opiate analgesic; Z88.6 Allergy status to analgesic agent; Z79.899 Other long term (current) drug therapy; Z98.890 Other specified postprocedural states

== ENCOUNTER → 2019-02-06 | Outpatient (CLI) | payer OTHER ==
[~2019-02-06] MED LIST changes: +GABAPENTIN 100100 MG PO
--- NOTE | 2019-02-06 09:37 | 2DMMODE ---
[facility] [employer] [place] [address] 2 D/M-MODE ECHOCARDIOGRAM Name: DEYVI BASURTO AVANI Room #: REG [facility]#: [id number] ������������� Admission: 02/06/19 ������������� Attend Phys: Bola Vizcarra MD Discharge: ��� ������������� ��� Date of : 47 Date of Service: 02/06/19 0936 �� Report #: [id number] �������� ��������������������������������������������[id number] THIS REPORT FOR: //name// APPROVED REPORT Study performed: 02/06/2019 08:52:56 EXAM: Comprehensive 2D, Doppler, and color-flow Echocardiogram Patient Location: Out-Patient Status: routine BSA: 1.59 HR: 66 bpm Rhythm: NSR Other Information Study Quality: Good Indications Chest Pain Hx: DM 2D Dimensions RVDd: 27.35 mm IVSd: 12.61 (7-11mm) LVOT Diam: 19.82 (18-24mm) LVDd: 44.88 mm PWd: 10.72 (7-11mm) Ascending Ao: 32.03 (22-36mm) LVDs: 29.40 (25-40mm) Aortic Root: 36.00 mm Volumes Left Atrial Volume (Systole) Single Plane 4CH: 33.65 mL Single Plane 2CH: 49.62 mL LA ESV Index: 29.00 mL/m2 Aortic Valve AoV Peak Ismael.: 1.24 m/s AO Peak Gr.: 6.18 mmHg LVOT Max P.71 mmHg LVOT Max V: 1.09 m/s GABRIELA Vmax: 2.69 cm2 Mitral Valve E/A Ratio: 0.9 MV Decel. Time: 199.93 ms [facility] [employer] [place] [address] 2 D/M-MODE ECHOCARDIOGRAM Name: DEYVI BASURTO AVANI Room #: REG [facility]#: [id number] ������������� Admission: 02/06/19 ������������� Attend Phys: Bola Vizcarra MD Discharge: ��� ������������� ��� Date of : 47 Date of Service: 02/06/19 0936 �� Report #: [id number] �������� ��������������������������������������������[id number] MV E Max Ismael.: 0.68 m/s MV A Ismael.: 0.72 m/s MV PHT: 57.98 ms IVRT: 73.82 ms Pulmonary Valve PV Peak Ismael.: 0.71 m/s PV Peak Gr.: 2.02 mmHg Pulmonary Vein P Vein S: 0.74 m/s P Vein A: 0.33 m/s P Vein D: 0.35 m/s P Vein A Dur.: 110.7 msec P Vein S/D Ratio: 2.11 Tricuspid Valve TR Peak Ismael.: 2.25 m/s RAP Estimate: 5.00 mmHg TR Peak Gr.: 20.25 mmHg PA Pressure: 25.00 mmHg Left Ventricle The left ventricle is normal size. There is normal LV segmental wall motion. Mild concentric left ventricular hypertrophy. Left ventricular systolic function is normal. LVEF is 55-60%. Mild diastolic dysfunction is present (impaired relaxation pattern). Right Ventricle The right ventricle is normal size. The right ventricular systolic function is normal. Atria The left atrium size is normal. The right atrium size is normal. Aortic Valve Aortic valve is grossly normal in structure. No aortic regurgitation is present. There is no aortic valvular stenosis. Mitral Valve The mitral valve is normal in structure. Mild mitral regurgitation. No evidence of mitral valve stenosis. Tricuspid Valve The tricuspid valve is normal in structure. Mild tricuspid regurgitation. Estimated PAP is 25mmHg. Pulmonic Valve [facility] [address] [place] [address] 2 D/M-MODE ECHOCARDIOGRAM Name: DEYVI BASURTO AVANI Room #: REG [facility]#: [id number] ������������� Admission: 02/06/19 ������������� Attend Phys: Bola Vizcarra MD Discharge: ��� ������������� ��� Date of : 47 Date of Service: 02/06/19 0936 �� Report #: [id number] �������� ��������������������������������������������[id number] The pulmonary valve is normal in structure. Mild to moderate pulmonic regurgitation. Great Vessels The aortic root is normal in size. The ascending aorta is normal in size. IVC is normal in size and collapses >50% with inspiration. Pericardium There is no pericardial effusion. <Conclusion> The left ventricle is normal size. Mild concentric left ventricular hypertrophy. Left ventricular systolic function is normal. Mild diastolic dysfunction is present (impaired relaxation pattern). The right ventricle is normal size. The left atrium size is normal. Aortic valve is grossly normal in structure. Mild mitral regurgitation. Mild tricuspid regurgitation. Estimated PAP is 25mmHg. ��������������������������������������������� <ELECTRONICALLY SIGNED> ���������������������������������������� By: Bola Vizcarra MD ��������������������������������������������� 02/06/1935 5 5 Bola Vizcarra MD /INF
== END ==
LOC: NUC 12-26 12:56
DX: I08.8 Other rheumatic multiple valve diseases (principal); Z88.5 Allergy status to narcotic agent

== ENCOUNTER → 2019-02-09 | Outpatient (CLI) | payer OTHER ==
[~2019-02-09] VITALS: Ht 157.5 cm; Wt 61.0 kg
[~2019-02-09] MED LIST changes: +ARICEPT10 MG PO; +ASPIR 8181 MG PO; +IBANDRONATE SO150 MG PO; +METAMUCIL FIBE3.4 GM PO; +VITAMIN E1000 UNI2 PO
[2019-02-09 10:35] VITALS: BP 147/76
--- NOTE | 2019-02-09 10:47 | NUR ---
Pain Clinic Assessment: 1. History of Osteoarthritis: Not Applicable History of Rheumatoid Arthritis: Not Applicable 2. Height: 5 ft. 2 in. 157.5 cm. Weight: 134.4 lb. oz. 60.963 kg. Patient's BMI: 24.6 3. Vital Signs: BP: 147/76 Pulse: 80 Resp: 14 Temp: 02 Sat: 100 ECG Mon: 4. Pain Intensity: 5 5. Fall Risk: Dizziness: N Needs help standing or walking: N Fallen in the last 3 months: N Fall risk comments: 6. Patient on Blood Thinner: None 7. History of Hypertension: N 8. Opioid Therapy greater than 6 weeks: N Opiate Contract Signed: 9. Risk Assessment Tool Provided: low 10. Functional Assessment Tool: 11. Recreational Drug Use: Never Drug Type: Tobacco Use: Never Smoker Tobacco Type: Amount or Packs/day: How Many Years: Alcohol Use: No Frequency: Quant:
--- NOTE | 2019-02-10 08:20 | HPC ---
[facility] [place] [address] PAIN MANAGEMENT CONSULTATION Name: DEYVI BASURTO AVANI Room #: REG [facility].#: [id number] Admission: 02/09/19 ������������������ Attend Phys: Giuliana Siegel Discharge: ������������������ Date of : 47 Report #: [id number] THIS REPORT FOR: //name// CC: Giuliana Siegel Libia Jacobs DATE OF SERVICE: 02/09/2019 CHIEF COMPLAINT: Chronic low back pain with lumbar radiculopathy and cervical radiculopathy. HISTORY OF PRESENT ILLNESS: This is a very pleasant 73-year-old female who returns to the pain clinic today for refill of her medications. She tells me that she received an epidural in her cervical area from Dr. Toi Valdes about a month ago. She tells me that she had about 50% relief that lasted for little over a week. She no longer has pain, just significant numbness that radiates down from her neck into her left arm and her entire hand is numb. She tells me she also has mid to low back pain that radiates down both of her buttocks, that radiates down the back of her legs to her knees. Her pain score today is 5; worse with walking, standing and bending; medications are helpful as well as distraction and movement. She would like a refill of those medications today. The patient tells me that she has placed her mother in hospice. She at first was very sad thinking that her mom was going to right away. When they mention hospice, she has found that it is a blessing to have hospice helping her care for her mother and the home nurses come quite frequently and help her out. She is understanding that hospice is a good thing for her mom as well as for herself. The patient is also dealing with some cardiac issues. She had a recent stress test and she tells me she is going back for another exam soon. She is unsure what it is called that she has to do further testing. The patient tells me she did see Dr. Urban. He recently he talked about doing a lumbar surgery on her. She feels that she is not quite ready to have surgery, but she finds that the injections are not as helpful as they used to. Right now she is busy helping care for her mother and sister, so therefore she is prolonging her surgery at this time. ALLERGIES: CODEINE. CURRENT MEDICATIONS: Oxycodone 10/325 three times a day, Namenda 10 mg b.i.d., tizanidine 4 mg t.i.d., Senokot as needed, Namzaric 28/10 once a day, Crestor 20 mg daily, Boniva 150 mg daily, Cymbalta 30 mg daily, Black Cohosh daily, vitamin C daily, turmeric daily, Caltrate daily, Zantac 300 mg at bedtime, omeprazole 40 mg daily, vitamin B12, and vitamin D3. PQRS: [address] [address] PAIN MANAGEMENT CONSULTATION Name: SBDEYVI Room #: REG [facility]#: [id number] Admission: 02/09/19 ������������������ Attend Phys: Giuliana Siegel Discharge: ������������������ Date of : 47 Report #: [id number] 1. Denies any osteoarthritis, but does suffer from degenerative spinal disease. She does not have rheumatoid arthritis. 2. Height is 5 feet 2 inches, weight is 134, BMI is 24. 3. Vital signs: Blood signs 147/76, pulse is 80, respirations 14, oxygen sat is 100. 4. Pain score is 5/10. 5. Fall risk: Denies dizziness. Does not need help with walking or standing. She has not fallen in the last 3 months. 6. The patient is not on any blood thinners or hypertension medicines. 7. Opioid therapy is greater than 6 weeks; therefore, an opioid signed contract is on the chart. Her risk assessment tool is low. Her functional assessment is 9/70. 8. Recreational drug use: She denies. She is not a smoker and does not drink alcohol. We did check the prescription monitoring system. The patient is filling appropriately from our clinic. She did fill some tramadol from Dr. Chepe Urban that she found not effective. PHYSICAL EXAMINATION: GENERAL: This is a very pleasant 73-year-old female who is alert and orientated. HEENT: Normocephalic, atraumatic. Extraocular eye muscles are intact. Mucous membranes are moist. MUSCULOSKELETAL: She has some neck pain with flexion, extension, rotation, and [id number] tilt. She has sensation of tingling and numbness into her left arm that radiates into her hand. She has weakness in the triceps, greater on the right than the left. The patient does walk with an antalgic gait. Her lower extremity strength judged to be 5/5 bilaterally in all major muscles and muscle tone. The patient does also complain of low back pain. We reviewed the fact that opiate medications are being used to provide analgesia adequate to support activities of daily living, not attempting to achieve a specific pain score on the 0-10 Visual Analog Scale. The current opiate medications are providing sufficient analgesia to allow the patient to participate in activities of daily living. The patient is not exhibiting any aberrant behavior suggestive of drug diversion. The patient is not having any adverse reactions to medications. The patient is not suffering from daytime somnolence or mental acuity changes. The patient is managing opiate-induced constipation with appropriate qvmu-gey-ajturcr agents and dietary considerations. The patient was counseled on concern for caution with operating a motor vehicle while using opiate medications. A physical exam was performed and the patient's functional status was evaluated. All patients with back pain were advised against the bed rest greater than 4 days and were advised to return to normal activities. Pain score assessment was [facility] [address] [place] [address] PAIN MANAGEMENT CONSULTATION Name: DEYVI BASURTO AVANI Room #: REG [facility]#: [id number] Admission: 02/09/19 ������������������ Attend Phys: Giuliana Siegel Discharge: ������������������ Date of : 47 Report #: [id number] noted and the treatment plan was reviewed with the patient. All current medications, both prescribed and OTC were reviewed and reconciled on the electronic medical record. Tobacco screening was accomplished and smoking cessation was advised when indicated. BMI was noted and diet/exercise modification was recommended for all patients following outside normal parameters. I reviewed with the patient today their responsibilities to safeguard prescription medications, reviewed their responsibility to utilize medications only as prescribed by the physician. They are to seek and receive pain medications only from 1 physician group ([facility]). They are to use 1 pharmacy and keep the clinic informed if they change pharmacies. Their responsibilities include making followup visits in a timely fashion and to avoid abrupt discontinuation of medication usage. Their responsibilities further include bringing their medications (bottles from the pharmacy with residual pills) to the visit for possible confirmation of pill counts and the patient understands it is their responsibility to submit to random drug screens to ensure both that the medications prescribed are present, and that no other controlled substances are present. All prescriptions provided today were generated electronically. PLAN: 1. We discussed treatment options with the patient today. The patient continues to take her oxycodone dose sparingly. She finds that they are very beneficial. Script was given today for oxycodone 10/325, #90 for release today and 4-week. According to the CDC guidelines, this places her below the 50 morphine mEq, at 45. She denies any problems with constipation or daytime sleepiness from this medication. 2. Script given for tizanidine 4 mg, #90 of them with 2 additional refills. The patient finds this is very helpful in her muscle cramps that she especially experiences at nighttime. Dr. Toi Valdes did come and see the patient today and collaborated care. The patient will follow up on an as needed basis for injections or medications. ��������������������������������������������� <ELECTRONICALLY SIGNED> ���������������������������������������� By: Giuliana Siegel ��������������������������������������������� 02/10/19 0820 1345 [id number] Giuliana Siegel /edgardo
== END ==
LOC: PAIN 02-06 06:44
DX: M54.16 Radiculopathy, lumbar region (principal); M54.12 Radiculopathy, cervical region; G89.29 Other chronic pain; E78.5 Hyperlipidemia, unspecified; E11.9 Type 2 diabetes mellitus without complications; Z87.891 Personal history of nicotine dependence

== ENCOUNTER → 2019-02-22 | Outpatient (CLI) | payer OTHER ==
[~2019-02-22] VITALS: Ht 157.5 cm; Wt 59.0 kg
[2019-02-22 11:18] VITALS: BP 144/64
[2019-02-22 11:31] LABS: HEMATOCRIT 38.8 % (37.0-47.0); HEMOGLOBIN 12.8 gm/dL (12.0-15.0); MCV 91.1 fL (80.0-100.0); RBC 4.25 mil/uL (4.20-5.00); RDW 14.9 % (10.5-14.5); WBC 8.1 thou/uL (4.0-11.0)
[2019-02-22 11:46] LABS: CALCIUM 9.6 mg/dL (8.5-10.1); CREATININE 0.6 mg/dL (0.6-1.0); POTASSIUM 3.8 mmol/L (3.5-5.1)
--- NOTE | 2019-02-22 16:15 | EKG ---
[address] [address] ELECTROCARDIOGRAM REPORT Name: DEYVI BASURTO AVANI [facility] [id number] ������������������ Admission: 02/22/19 ������������������ Attend Phys: Bola Vizcarra MD Discharge: ������������������ Date of : 47 Report #: [id number] ����������������������������������������������������������������� [id number] THIS REPORT FOR: //name// [facility] Test Date: 2019-02-22 Test Time: 11:12:07 Pat Name: DEYVI BASURTO Department: Room: Gender: F Lead Person: ASHLEY : 1945 Requested By: Bola Vizcarra Order Number: [id number] MD: Jakob Moseley Measurements Intervals Piercy Rate: 69 P: 50 MD: 134 QRS: -5 QRSD: 95 T: 5 QT: 390 QTc: 418 Interpretive Statements Sinus rhythm Borderline T wave abnormalities Compared to ECG 11/11/2018 08:04:21 No significant changes Electronically Signed On 02-22-2019 16:15:40 CDT by Jakob Moseley [email or web address] ��������������������������������������������� <ELECTRONICALLY SIGNED> ���������������������������������������� By: Jakob Moseley MD ��������������������������������������������� 02/22/19 1615 11 11 Jakob Moseley MD /ALVARADO
--- NOTE | 2019-02-22 16:28 | CATHLAB ---
[facility] [address] [place] [address] INVASIVE PROCEDURE REPORT Name: DEYVI BASURTO AVANI Room #: REG [facility]#: [id number] ������������� Admission: 02/22/19 ������������� Attend Phys: Bola Vizcarra MD Discharge: ��� ������������� ��� Date of : 47 Date of Service: 02/22/19 1627 �� Report #: [id number] �������� ��������������������������������������������[id number] THIS REPORT FOR: //name// APPROVED REPORT Study performed: 02/22/2019 13:07:20 Patient Details Patient Status: Out-Patient Room #: The patient is a 73 year-old female Event Personnel Bola Vizcarra Sfdc Consultant, Brigida Velasquez RN, Brigida Velasquez RN, Andrea Tsai Monitor Procedures Performed Left Heart Cath w/or w/o Coronaries [id number] [facility] Indication Dyspnea, Positive stress test, Chest pain Risk Factors Hypercholesterolemia, Hypertension, Diabetes Procedure Narrative The Right Groin^ was infiltrated with 1% Lidocaine subcutaneous anesthesia. A PINNACLE 4FR Sheath #[id number] sheath was inserted into the RFA^. Coronary angiography was performed using coronary diagnostic catheters. The right coronary system was accessed and visualized with a JL4 catheter. The left coronary system was accessed and visualized with a JR4 catheter. The left ventricle was accessed and visualized with a PIGTAIL catheter. Left ventricular/Aortic Valve gradient assessed via catheter pullback. Hemostasis was obtained with manual pressure following sheath removal without any complications. The patient tolerated the procedure well and there were no complications associated with the procedure. There was no hematoma. Intraoperative Conscious Sedation Sedation start time: 1316 Case end Time: 1336 Fentanyl 50 mcg Versed 1 mg Fluoro Time: 2.70 minutes Dose: DAP 4508.00 cGycm2 684 mGy [facility] [address] [place] [address] INVASIVE PROCEDURE REPORT Name: DEYVI BASURTO AVANI Room #: REG [facility]#: [id number] ������������� Admission: 02/22/19 ������������� Attend Phys: Bola Vizcarra MD Discharge: ��� ������������� ��� Date of : 47 Date of Service: 02/22/19 1627 �� Report #: [id number] �������� ��������������������������������������������[id number] Contrast Type and Amount: Omnipaque 75 ml Coronary Angiography The patient's coronary anatomy is co- dominant. Diagnostic Cath Left Main This is a large caliber vessel, patent with no flow-limiting lesions. LAD This is a moderate size caliber vessel, traversing the anterior wall and wrapping around the apex. This vessel is patent with minimal luminal irregularities noted within the mid segment. Diagonal 1 This is a patent vessel, with no flow-limiting lesions. Circumflex This is a codominant vessel, patent with no flow-limiting lesions. OM1 This is a patent vessel, with no flow-limiting lesions. OM2 This is a patent vessel, with no flow-limiting lesions. Right Coronary This is a patent vessel, with no flow-limiting lesions. R PDA This is a small caliber vessel, with no flow-limiting lesions. Left Ventriculography The left ventricle is normal in size with normal contractility. The left ventricular ejection fraction is estimated to be 55-60%. Hemodynamics The aortic pressure is 159/92 mmHg with a mean of 95 mmHg. The left ventricular pressure is 157/35 mmHg with a mean of mmHg. The left ventricular end diastolic pressure is 44 mmHg. Conclusion 1. Angiographically normal coronary arteries. There may be minimal luminal irregularities in the mid LAD. 2. Normal LV systolic function. 3. Recommend aggressive risk factor management. ��������������������������������������������� <ELECTRONICALLY SIGNED> ���������������������������������������� By: Bola Vizcarra MD ��������������������������������������������� 02/22/19 1627 162 [id number] Bola Vizcarra MD /INF
== END | disposition home or self-care (01) ==
LOC: CATH 02-15 11:26
PROVIDERS: Internal Medicine Cardiovascular Disease
DX: R94.39 Abnormal result of other cardiovascular function study (principal); I10 Essential (primary) hypertension; E11.9 Type 2 diabetes mellitus without complications; E78.00 Pure hypercholesterolemia, unspecified; K21.9 Gastro-esophageal reflux disease without esophagitis; Z87.891 Personal history of nicotine dependence; Z90.710 Acquired absence of both cervix and uterus; Z90.49 Acquired absence of other specified parts of digestive tract; Z98.890 Other specified postprocedural states; Z79.899 Other long term (current) drug therapy

== ENCOUNTER 2019-02-24 15:44 | Inpatient (IN) | payer OTHER ==
[~2019-02-24] VITALS: Ht 157.5 cm; Wt 59.0 kg
--- NOTE | ~2019-02-24 | D ---
[facility] [address] [place] [address] DISCHARGE SUMMARY Name: DEYVI BASURTO Room #: 364-P [facility] M.R.#: [id number] Admission: 02/25/19 ������������������ Attend Phys: Anibal Yusuf MD Discharge: 02/25/19 ������������������ Date of : 47 Report #: [id number] THIS REPORT FOR: //name// CC: Anibal Jacobs DATE OF SERVICE: 02/25/2019 ADMITTING DIAGNOSIS: Right groin pulsatile mass. DISCHARGE DIAGNOSIS: Right groin pseudoaneurysm. PROCEDURES PERFORMED: Injection of thrombus and hematoma drainage percutaneous. FOLLOWUP: Dr. Bola Vizcarra on 03/01/2019. DISCHARGE MEDICATIONS: Vitamin D3, vitamin B12, omeprazole, ranitidine, calcitrate, turmeric, vitamin C, Cymbalta, Crestor, Namenda, oxycodone, Zanaflex, gabapentin, aspirin, Aricept, ibandronate, Metamucil. DISCHARGE DIET: [employer] step 1 diet with salt restriction. BRIEF CLINICAL HISTORY: See history and physical in chart. HOSPITAL COURSE: The patient was admitted to the hospital with evidence of pseudoaneurysm. Initial attempts at ultrasound compression were unsuccessful and Dr. Anibal Yusuf was consulted for thrombin injection. This was performed percutaneously without complications. Post-procedure: The patient did well after her mandatory bed rest. She did not have any evidence of pulsatile mass, etc. Findings to expect were discussed with the patient and family at length. She did voice understanding. She is being discharged in stable and improved condition with the previously stated discharge instructions and medications. ��������������������������������������������� ���������������������������������������� By: ��������������������������������������������� 1514 2315 Mike Colindres MD /nt
[2019-02-24 15:45] VITALS: BP 117/39
[2019-02-24 16:00] VITALS: BP 113/42
[2019-02-24 18:07] VITALS: BP 119/48
[2019-02-25 00:10] VITALS: BP 102/42
[2019-02-25 03:55] VITALS: BP 124/51
--- NOTE | 2019-02-25 04:42 | NUR ---
PATIENT IS ALERT AND ORIENTED. PATIENT INCISION TO RT GROIN. NO HEMOTOMA. BURSING TO RT LEG. PATIENTS VITALS HAVE BEEN STABLE. PATIENT IS ON ROOM AIR. PATIENT DENIES ANY PAIN. PATIENT IS PENDING DICHARGE TODAY WCM. PATIENT IS RESTING COMFORTABLY IN BED. WCM. PATIENT IS PROGRESSING TO GOALS.
[2019-02-25 08:14] VITALS: BP 115/50
[2019-02-25 11:44] VITALS: BP 115/50
--- NOTE | 2019-02-25 12:58 | NUR ---
Recieved awake on bed. Due medications given as prescribed. Independent with ADLs, up ad lydia. A/w if for discharge today. A+Ox4. On heart monitor- NSR. Injection site checked- dry, intact, no bleeding; patient still have bruises as handed over by night clerk staff. Patient asked about discharge orders, pt seen by Nurse practitioner- pending discharge if ok with Dr. Abraham. Staff called re: medicare papers to be signed, asked if pt is under observation or as in patient, read thru pt's admission orders and mentioned to ask peter staff to change patient's status to inpatient, no need to sign NUNEZ form- commercial pest control representative informed and changed status of patient. Pt asked several times and becoming upset re: discharge orders- explained to the patient that Dr. Abraham needs to see her or give discharge instructions, DRs office called 2x 11:07 and 11:40. Pt seen by Dr. Abraham, verified with re: if with new orders or follow up schedule, mentioned that he already talked to the patient about discharge instruction, printed discharge papers- emphasized to patient about follow up schedule and number to call, US of RT groin, medications to continue; pt signed discharge instructions. Pt. fetched by her daughter. Brought down by staff via wheelchair with her personal belongings, d/c from heart monitor.
== END 2019-02-25 12:58 | disposition home or self-care (01) | DRG 301 ==
LOC: ER 15:44 → EROBS 17:24 → 3W 18:24
PROVIDERS: ADMIT Nuclear Medicine Nuclear Cardiology
PROC: 3E053GC Introduction of Other Therapeutic Substance into Peripheral Artery, Percutaneous Approach (ICD-10-PCS; principal; 2019-02-24)
DX: I72.4 Aneurysm of artery of lower extremity (principal); I10 Essential (primary) hypertension; E78.5 Hyperlipidemia, unspecified; E11.9 Type 2 diabetes mellitus without complications; Y83.8 Other surgical procedures as the cause of abnormal reaction of the patient, or of later complication, without mention of misadventure at the time of the procedure; K21.9 Gastro-esophageal reflux disease without esophagitis; Z79.899 Other long term (current) drug therapy; Z79.82 Long term (current) use of aspirin; Z88.6 Allergy status to analgesic agent; Z90.710 Acquired absence of both cervix and uterus; Z87.891 Personal history of nicotine dependence; Y92.89 Other specified places as the place of occurrence of the external cause
CPT/HCPCS: 10879

== ENCOUNTER → 2019-03-23 | Outpatient (CLI) | payer OTHER ==
[~2019-03-23] VITALS: Ht 162.6 cm; Wt 59.1 kg
[2019-03-23 11:21] VITALS: BP 122/60
--- NOTE | 2019-03-23 11:31 | NUR ---
Pain Clinic Assessment: 1. History of Osteoarthritis: Not Applicable History of Rheumatoid Arthritis: Not Applicable 2. Height: 5 ft. 4 in. 162.6 cm. Weight: 130.4 lb. oz. 59.149 kg. Patient's BMI: 22.4 3. Vital Signs: BP: 122/60 Pulse: 62 Resp: 14 Temp: 02 Sat: ECG Mon: 4. Pain Intensity: 6 5. Fall Risk: Dizziness: N Needs help standing or walking: N Fallen in the last 3 months: N Fall risk comments: 6. Patient on Blood Thinner: None 7. History of Hypertension: N 8. Opioid Therapy greater than 6 weeks: N Opiate Contract Signed: 9. Risk Assessment Tool Provided: low 10. Functional Assessment Tool: 11. Recreational Drug Use: Never Drug Type: Tobacco Use: Former Smoker Tobacco Type: Amount or Packs/day: How Many Years: Alcohol Use: Yes Frequency: Quant:
--- NOTE | 2019-03-28 17:25 | HPC ---
[facility] [address] [address] PAIN MANAGEMENT CONSULTATION Name: DEYVI BASURTO AVANI [id number] Admission: 03/23/19 ������������������ Attend Phys: Toi Valdes MD Discharge: ������������������ Date of : 47 Report #: [id number] THIS REPORT FOR: //name// CC: Toi Jacobs MD DATE OF SERVICE: 03/23/2019 Followup visit for chronic pain including cervicalgia with radiculopathy, low back pain with radiculopathy and osteoarthritis. The patient is here today for a 20-25 minute consultation as well as injection of the cervical spine. She has responded to cervical epidural injections with modest improvement. She complains today of cervical radiculopathy and would very much like an injection. We spent a good deal of the day today again counseling and discussing her home situation. 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 Her mother is now on hospice. The transition to hospice has been a good thing. It has allowed additional caregivers into the home and paid for into the hospice benefit. She still needs to be in the home, however, every day because she is involved with many of the day-to-day tasks. She is tired. I understand why. She has provided this loving care now for many years, but it is clearly a labor of love and quite a labor at that. She has to use her upper extremities, her neck, her back in order to help transport and also to help with transfers. This has all exacerbated her pain. Today, she complains of pain primarily in her neck. The pain radiates from her neck into her arms. She has some mild weakness. PHYSICAL EXAMINATION: Pleasant, alert and oriented. She appears tired. Her blood pressure is 122/60, heart rate is 62. Examination of the neck reveals pain with flexion, extension, rotation, and svon-re-ibac tilt. She has a positive Spurling's. 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 Sensation is intact. Deep tendon reflexes are normal in lower extremities. IMPRESSION: 1. Cervical radiculopathy. 2. Chronic caregiver syndrome. She is exhausted. 3. Chronic low back pain with radiculopathy. RECOMMENDATIONS: 1. We talked about perhaps checking to see if her aunt is also a hospice candidate. Both she and her mother are debilitated and have a number of [facility] [address] [place] [address] PAIN MANAGEMENT CONSULTATION Name: DEYVI BASURTO AVANI [id number] Admission: 03/23/19 ������������������ Attend Phys: Toi Valdes MD Discharge: ������������������ Date of : 47 Report #: [id number] comorbidities. If the two of them are on hospice, which is not out of the question, then the patient could seek respite care. Her mother and her aunt could go for an entire week into a respite care bed and that would give her a week off, and I think it would do her wonders. We discussed the respite benefit of hospice with her and ways that that might be utilized for the betterment of all including the patient, her mother and aunt. She would return, I think, a more refreshed caregiver and this would also help her chronic pain. 2. Cervical epidural steroid injection under fluoroscopic guidance. PROCEDURE: She was taken to fluoroscopic suite, placed prone, skin prepped with ChloraPrep. Skin anesthetized over C7-T1. A 20-gauge Tuohy epidural needle advanced first attempt into the epidural space with loss of resistance technique. There was no blood or CSF aspirated. A 1 mL of Omnipaque injected. Good spread of dye observed into the epidural space, was followed by 3 mL of 0.5% lidocaine mixed with 80 mg triamcinolone. She tolerated the procedure well and was observed for 45 minutes and discharged. Pain was diminished at 0 at discharge. Follow up as needed. ��������������������������������������������� <ELECTRONICALLY SIGNED> ���������������������������������������� By: Toi Valdes MD ��������������������������������������������� 03/28/19 1725 1403 1959 Toi Valdes MD /nt
== END | disposition home or self-care (01) ==
LOC: PAIN 06:57
DX: M54.12 Radiculopathy, cervical region (principal); G89.29 Other chronic pain; M54.16 Radiculopathy, lumbar region; Z63.6 Dependent relative needing care at home; Z87.891 Personal history of nicotine dependence; Z79.82 Long term (current) use of aspirin; Z79.899 Other long term (current) drug therapy

== ENCOUNTER → 2019-05-01 | Outpatient (CLI) | payer OTHER ==
[~2019-05-01] VITALS: Ht 162.6 cm; Wt 61.1 kg
--- NOTE | ~2019-05-01 | HPC ---
[facility] [address] [address] PAIN MANAGEMENT CONSULTATION Name: DEYVI BASURTO AVANI Room #: REG Amy Javier.#: [id number] Admission: 05/01/19 ������������������ Attend Phys: Toi Valdes MD Discharge: ������������������ Date of : 47 Report #: [id number] THIS REPORT FOR: //name// CC: Toi Jacobs DATE OF SERVICE: 05/01/2019 Followup visit for chronic spinal pain with cervicalgia with radiculopathy, low back pain with radiculopathy. The patient returns to pain clinic today for 25 minute consultation. Much time spent today about her caregiving activities, chronic pain and her day-to-day function. She had hoped to get another epidural injection today. We reviewed the records. She has had a number of injections, lumbar, and cervical over the course of the last year. If we total them, she has had 5 total injections since June of last year. The first 3 lumbar in June, August and November and she has had 2 cervical epidurals in December and January. She reports each time she received an injection that provides relief and she is particularly interested in another lumbar injection. I reviewed her x-rays and I believe that we should repeat her MRI. Her last MRI was over 2 years ago and she has had some changes. She now has bilateral pain. PQRS REVIEW: 1. History of osteoarthritis. 2. BMI 23.1. 3. Vital signs: Blood pressure 144/59, heart rate 72, respirations 16. 4. Pain intensity 3-4/10. 5. She has not fallen, nor she seems to be a fall risk. 6. No blood thinners. 7. She is not treated for hypertension. 8. She has signed an opioid agreement. 9. She has completed an opioid risk tool and is considered to be at low risk. 10. Functional assessment to . She either is underreporting or managing quite well. This is a very low score suggesting that she deals well with her pain. 11. She denies use of tobacco, but drinks alcohol occasionally in a social setting. PHYSICAL EXAMINATION: Vital signs as noted above. She is pleasant, alert and oriented. She independently moves from sitting to standing position and ambulates with marked antalgic features. She has pain with range of motion in flexion, extension, rotation, cnia-ck-zksp tilt of the cervical spine. There is no Spurling's noted. No weakness noted in the upper extremities. Sensation is intact. Examination of the low back reveals significant lordotic curve with [facility] [address] [place] [address] PAIN MANAGEMENT CONSULTATION Name: DEYVI BASURTO Room #: REG [facility]#: [id number] Admission: 05/01/19 ������������������ Attend Phys: Toi Valdes MD Discharge: ������������������ Date of : 47 Report #: [id number] tenderness and scoliosis. Bilateral straight leg raising is noted. Sensation is diminished below the knees in the L5-S1 dermatomes. Straight leg raising is positive. Chest is clear. Cardiac rhythm is regular. IMPRESSION: 1. Chronic intractable low back pain with radiculopathy. 2. Chronic cervicalgia with radiculopathy. RECOMMENDATION: I will consider another lumbar epidural injection, perhaps a transforaminal based upon findings of her repeat MRI. We discussed obtaining this test within the next couple of weeks and I will see her back in clinic. ��������������������������������������������� ���������������������������������������� By: ��������������������������������������������� 1312 Toi Valdes MD /nt
[2019-05-01 10:18] VITALS: BP 144/59
--- NOTE | 2019-05-01 10:57 | NUR ---
Pain Clinic Assessment: 1. History of Osteoarthritis: Not Applicable History of Rheumatoid Arthritis: Not Applicable 2. Height: 5 ft. 4 in. 162.6 cm. Weight: 134.8 lb. oz. 61.145 kg. Patient's BMI: 23.1 3. Vital Signs: BP: 144/59 Pulse: 72 Resp: 16 Temp: 02 Sat: 100 ECG Mon: 4. Pain Intensity: 3-4 5. Fall Risk: Dizziness: N Needs help standing or walking: N Fallen in the last 3 months: N Fall risk comments: 6. Patient on Blood Thinner: None 7. History of Hypertension: N 8. Opioid Therapy greater than 6 weeks: N Opiate Contract Signed: 9. Risk Assessment Tool Provided: low 10. Functional Assessment Tool: 11. Recreational Drug Use: Never Drug Type: Tobacco Use: Former Smoker Tobacco Type: Amount or Packs/day: How Many Years: Alcohol Use: Yes Frequency: Quant:
== END ==
LOC: PAIN 06:51
DX: M54.16 Radiculopathy, lumbar region (principal); M54.12 Radiculopathy, cervical region

== ENCOUNTER → 2019-05-08 | Outpatient (CLI) | payer OTHER | LOC: MRI 09:32 | DX: M51.17 Intervertebral disc disorders with radiculopathy, lumbosacral region (principal); M48.07 Spinal stenosis, lumbosacral region; M12.88 Other specific arthropathies, not elsewhere classified, other specified site; M89.38 Hypertrophy of bone, other site; M51.14 Intervertebral disc disorders with radiculopathy, thoracic region ==

== ENCOUNTER → 2019-06-05 | Outpatient (CLI) | payer OTHER ==
[~2019-06-05] VITALS: Ht 162.6 cm; Wt 60.4 kg
--- NOTE | ~2019-06-05 | HPC ---
[facility] [address] [address] PAIN MANAGEMENT CONSULTATION Name: DEYVI BASURTO AVANI Room #: REG [facility].#: [id number] Admission: 06/05/19 ������������������ Attend Phys: Toi Valdes MD Discharge: ������������������ Date of : 47 Report #: [id number] THIS REPORT FOR: //name// CC: Abbe Jacobs MD DATE OF SERVICE: 06/05/2019 The patient returns to pain clinic today to review her MRI scan and for an epidural injection. She continues to complain of neurogenic claudication. Pain is worse when she is standing or walking and improves when she sits. I performed an MRI and was able to review the results of that today with her first hand. It shows significant spinal stenosis, particularly at L4-L5 and some also at L5-S1. I find the ligamentum thickening at L4-L5 to be significantly narrowing and the likely cause for much of her neurogenic claudication. There may be some additional thickening also at L5-S1. We discussed her suitability for the MILD procedure. Dr. Abbe Valerio has been her referral physician for this procedure and does an excellent job. This is an important possible treatment for the patient since she is limited in how much time she can take for surgery. 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 PQRS REVIEW: 1. She has a history of arthritis of the low back. 2. BMI of 22.9. She has lost some weight recently. 3. Vital signs: Blood pressure 132/44, heart rate 68, respirations 16. 4. Pain intensity 5/10. 5. She has not fallen nor is she a fall risk. 6. No blood thinners. 7. No history of hypertension. 8. She is on an opioid agreement through our clinic and received medications under terms of that agreement in April. She does not need medication today. 9. She has completed an opioid risk tool score and is at 0/10. 10. Functional assessment score /70. This is an underestimate. She pushes through her pain well, but that score to me reflects stoicism. 11. She denies use of tobacco, drinks alcohol occasionally in social setting and special occasion. PHYSICAL EXAMINATION: VITAL SIGNS: As noted above. GENERAL: She is pleasant, alert and oriented, without signs of depression, anxiety or overmedication. She independently moves from sitting to standing position, ambulates with an antalgic gait. [facility] [address] [place] [address] PAIN MANAGEMENT CONSULTATION Name: DEYVI BASURTO [id number] Admission: 06/05/19 ������������������ Attend Phys: Toi Valdes MD Discharge: ������������������ Date of : 47 Report #: [id number] CHEST: Clear to auscultation. CARDIAC: Rhythm is regular. ABDOMEN: Soft. MUSCULOSKELETAL: Examination of the spine reveals hyperlordosis. Tenderness across the lumbosacral spine. Straight leg raising bilaterally positive. Strength is 5+/5. Sensation is normal throughout the lower extremities. She still has some numbness in her nondermatomal distribution since her cervical epidural injection. Good strength, however, is noted. There is no weakness in any muscle group. She has good range of motion and denies pain. IMPRESSION: MRI evidence of severe spinal stenosis L4-L5 and L5-S1. Neurogenic claudication. PLAN: 1. Epidural steroid injection today under fluoroscopic guidance. 2. Referred to Dr. Abbe Valerio for evaluation for MILD. Phone call placed in the recovery room before discharge to the [facility]. PROCEDURE: She was taken to fluoroscopic suite, placed prone, skin prepped with ChloraPrep. Skin was anesthetized over the L5-S1 interspace. A 20-gauge Tuohy epidural needle advanced first attempt into the upper portion of the L5-S1 interspace. A 1 mL of Omnipaque was injected. Good spread of dye observed in the epidural space extending cephalad and caudad. It was then followed by 3 mL of 0.5% lidocaine mixed with 10 mg of dexamethasone. She tolerated the procedure well. She was observed for 45 minutes and discharged with a followup visit scheduled in Dr. Vaelrio's office, and we will see her for medication management going forward. ��������������������������������������������� ���������������������������������������� By: ��������������������������������������������� 1727 0227 Toi Valdes MD /nt
[2019-06-05 13:49] VITALS: BP 132/44
--- NOTE | 2019-06-05 13:52 | NUR ---
Pain Clinic Assessment: 1. History of Osteoarthritis: Not Applicable History of Rheumatoid Arthritis: Not Applicable 2. Height: 5 ft. 4 in. 162.6 cm. Weight: 133.2 lb. oz. 60.419 kg. Patient's BMI: 22.9 3. Vital Signs: BP: 132/44 Pulse: 68 Resp: 16 Temp: 02 Sat: 100 ECG Mon: 4. Pain Intensity: 5 5. Fall Risk: Dizziness: N Needs help standing or walking: N Fallen in the last 3 months: N Fall risk comments: 6. Patient on Blood Thinner: None 7. History of Hypertension: N 8. Opioid Therapy greater than 6 weeks: Y Opiate Contract Signed: 05/01/19 9. Risk Assessment Tool Provided: low 10. Functional Assessment Tool: 11. Recreational Drug Use: Never Drug Type: Tobacco Use: Former Smoker Tobacco Type: Amount or Packs/day: How Many Years: Alcohol Use: Yes Frequency: Special Occasions Quant:
== END | disposition home or self-care (01) ==
LOC: PAIN 05-15 06:55
DX: M48.07 Spinal stenosis, lumbosacral region (principal); M48.062 Spinal stenosis, lumbar region with neurogenic claudication; M19.90 Unspecified osteoarthritis, unspecified site

== ENCOUNTER → 2019-08-22 | Outpatient (CLI) | payer OTHER ==
[~2019-08-22] VITALS: Ht 162.6 cm; Wt 59.6 kg
[2019-08-22 10:37] VITALS: BP 134/67
--- NOTE | 2019-08-22 10:56 | NUR ---
Pain Clinic Assessment: 1. History of Osteoarthritis: Not Applicable History of Rheumatoid Arthritis: Not Applicable 2. Height: 5 ft. 4 in. 162.6 cm. Weight: 131.4 lb. oz. 59.603 kg. Patient's BMI: 22.5 3. Vital Signs: BP: 134/67 Pulse: 76 Resp: 14 Temp: 02 Sat: 100 ECG Mon: 4. Pain Intensity: 8 EVENINGS 5. Fall Risk: Dizziness: N Needs help standing or walking: N Fallen in the last 3 months: N Fall risk comments: 6. Patient on Blood Thinner: None 7. History of Hypertension: N 8. Opioid Therapy greater than 6 weeks: Y Opiate Contract Signed: 05/01/19 9. Risk Assessment Tool Provided: zack 10. Functional Assessment Tool: 11. Recreational Drug Use: Never Drug Type: Tobacco Use: Former Smoker Tobacco Type: Amount or Packs/day: How Many Years: Alcohol Use: Yes Frequency: Quant:
--- NOTE | 2019-08-22 16:27 | HPC ---
[facility] [address] [place] [address] PAIN MANAGEMENT CONSULTATION Name: DEYVI BASURTO Room #: REG [facility].#: [id number] Admission: 08/22/19 Attend Phys: Benedicto Liriano DO Discharge: Date of : 47 Report #: [id number] THIS REPORT FOR: //name// CC: Benedicto Jacobs MD DATE OF SERVICE: 08/22/2019 CHIEF COMPLAINT: Neck pain, bilateral upper extremity pain with paresthesias. HISTORY OF PRESENT ILLNESS: As you know, the patient is a very pleasant 73-year-old female who has been followed by my partner Dr. Toi Valdes for ongoing low back pain and lower extremity symptoms. She indicates a recent onset of neck pain, bilateral upper extremity pain for which she uses terms of numbness, tingling, burning, electrical shooting when describing pain. She was referred back to our clinic by her PCP to consider the possibility of undergoing cervical epidural injection. She reports today pain level of 8/10, mainly as the day progresses. Days starts with pain at level anywhere from 4-5/10. She reports today with no imaging of the cervical spine to review. She denies injury or trauma that may have led to symptom occurrence. ALLERGIES: CODEINE. CURRENT MEDICATIONS: Aricept 10 mg once a day, ibandronate 150 mg monthly, FiberCon 1 tab per day, Percocet 10/325 one tab every 8 hours p.r.n. for pain, aspirin 81 mg per day, gabapentin 100 mg t.i.d., tizanidine 4 mg p.r.n., Namenda 10 mg per day, rosuvastatin 20 mg per day, duloxetine 30 mg once a day, ascorbic acid 500 mg once a day, turmeric 500 mg once a day, calcium carbonate 1 tab per day, ranitidine 150 mg once a day, omeprazole 40 mg per day, cyanocobalamin 500 mcg per day, cholecalciferol 2000 units per day. IMAGING: No new imaging available. PQRS: The patient has known arthritic changes of the thoracic and lumbar spine. No rheumatoid arthritis. She is placing current pain intensity at 8/10. She is not a fall risk, has not had a fall in last 3 months. She is not on blood thinners and reports she is not treated for hypertension. She is on chronic opioids, but does have a low opioid addiction potential. Pain impact score today 9/70 indicating mild interference of daily activities secondary to pain. PHYSICAL EXAMINATION: VITAL SIGNS: Blood pressure 134/67, pulse is 76, respiratory rate 14 and unlabored. The patient is 100% on room air. Height 5 feet 4 inches tall, weight 131.4 pounds, BMI calculated 22.5. [facility] [address] [place] [address] PAIN MANAGEMENT CONSULTATION Name: DEYVI BASURTO AVANI Room #: REG CLI [facility]#: [id number] Admission: 08/22/19 Attend Phys: Benedicto Liriano DO Discharge: Date of : 47 Report #: [id number] GENERAL: Well-developed, well-nourished, well-hydrated, thin, 73-year-old female appearing her stated age, placing current pain score at around 8/10. HEENT: Normocephalic, atraumatic. Pupils equal, round, reactive to light. Extraocular muscles are intact. NEUROLOGIC: Speech fluent. The patient deemed a good historian. EXTREMITIES: Show no clubbing, no cyanosis, and no edema. MUSCULOSKELETAL: Upper extremity strength appears symmetrical 5/5. 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 There is no intrinsic muscle atrophy in the hands. She is intact to light touch from C5 through T1 dermatomes. Spurling's test is equivocal. Cervical provocation testing is met with increasing neck pain. Muscle bulk and tone is symmetrical in comparing left upper extremity to right. ASSESSMENT: 1. Cervical radiculopathy. 2. Cervical spondylosis with radiculopathy. PLAN: 1. The patient has returned today in followup visit with progressively worsening neck pain, bilateral upper extremity pain with paresthesias. The findings of the physical exam and the distribution of the patient is experiencing pain upon would indicate central canal stenosis issue, the distribution of pain appears equal and symmetrical, which correlates with cervical spinal stenosis, though the level would be difficult to ascertain. She does have some movement restrictions and pain with cervical rotation at the lower cervical area. We discussed with the patient that the typical distribution of a cervical radiculopathy in a bilateral nature would be related more to central canal stenosis than bilateral neural foraminal stenosis, though this cannot be ruled out as we do not have any imaging of the cervical region. The patient states she has had MRI of the cervical spine, but this is not available to us at this time. We will look into finding those testings but they apparently are years ago. After a discussion of the findings of the physical exam, we discussed the following treatment course. We discussed physical therapy, stretching exercises and traction techniques as a possible treatment course. We discussed medication management utilizing neuropathic pain medications and a consistent nonsteroidal anti-inflammatory. We discussed cervical epidural injections under fluoroscopic guidance and ultimately surgical intervention. After reviewing risks and benefits of all proposed treatment options, the patient chose to undergo cervical epidural injection under fluoroscopic guidance. 1. The patient was advised risks and benefits of a cervical epidural injection. These risks include but are not necessarily limited to bleeding, bruising, infection, worsening pain, no relief of pain, also risk of temporary or permanent muscle weakness, temporary or permanent nerve damage, possible paralysis, post-dural puncture headache and . The patient states [facility] [address] [place] [address] PAIN MANAGEMENT CONSULTATION Name: DEYVI BASURTO Room #: REG [facility]ney#: [id number] Admission: 08/22/19 Attend Phys: Benedicto Liriano DO Discharge: Date of : 47 Report #: [id number] understood and wished to proceed. 2. No medication changes made at today's visit. The patient will continue current medical therapy as previously prescribed. 3. We will see the patient back in followup visit on an as needed basis for the next in the series of cervical epidural injections. PROCEDURE NOTE DESCRIPTION OF PROCEDURE: C7-T1 cervical epidural steroid injection under fluoroscopic guidance. After obtaining written consent, the patient was taken back to fluoroscopy suite, placed in prone position with pillow under chest and forehead to decrease cervical lordosis. Skin overlying cervical area then prepped and draped in aseptic fashion. C7-T1 cervical interspace identified by AP fluoroscopy. Skin and subcutaneous tissue overlying target site of injection anesthetized with 3 mL of 1% lidocaine. A 20-gauge 3-1/2 inch Tuohy needle advanced under fluoroscopic guidance towards the epidural space using a parasagittal approach. Epidural space was identified using loss of resistance to air technique. After negative aspiration for heme or cerebrospinal fluid, 0.5 mL of Omnipaque injected. A cervical epidurogram was confirmed using both AP and oblique fluoroscopy. After negative aspiration for heme or cerebrospinal fluid, 5 mL of a solution containing 2 mL 40 mg per mL, 80 mg total triamcinolone along with 3 mL lidocaine 1% injected slowly. Needle then retracted half-way, flushed with 1 mL of 1% lidocaine and then removed. Sterile bandage placed over injection site. There were no new motor deficits present in the upper extremities following procedure. The patient tolerated procedure well, carefully escorted to recovery room in stable condition. No apparent complications. After meeting discharge criteria, the patient discharged home. <ELECTRONICALLY SIGNED> By: Benedicto Liriano DO 08/22/19 1627 1205 1413 Benedicto Liriano DO /nt
== END | disposition home or self-care (01) ==
LOC: PAIN 08-07 07:03
DX: M47.22 Other spondylosis with radiculopathy, cervical region (principal); G89.29 Other chronic pain; Z88.8 Allergy status to other drugs, medicaments and biological substances; Z79.899 Other long term (current) drug therapy; Z79.891 Long term (current) use of opiate analgesic; Z79.82 Long term (current) use of aspirin

== ENCOUNTER → 2019-09-25 | Outpatient (CLI) | payer OTHER ==
[~2019-09-25] VITALS: Ht 162.6 cm; Wt 60.5 kg
[~2019-09-25] MED LIST changes: +PERCOCET 10-321 EAC1 PO
--- NOTE | ~2019-09-25 | HPC ---
[facility] [address] [place] [address] PAIN MANAGEMENT CONSULTATION Name: DEYVI BASURTO AVANI Room #: [facility] [id number] Admission: 09/25/19 Attend Phys: Toi Valdes MD Discharge: Date of : 47 Report #: [id number] THIS REPORT FOR: //name// CC: Toi Jacobs DATE OF SERVICE: 09/25/2019 Followup visit for severe spinal stenosis and lumbar radiculopathy. The patient comes in to the pain clinic today for repeat epidural injection. This will be her third injection in the last 6 months, 6 injections within the year. She continues to receive benefit from these injections, lasting about 2 months. 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 The three of them live together. All are continuing to slowly decline including the patient, who pushes herself extensively. She has no other options. The cost of care is prohibitive as well as her wish to keep her family close by. PQRS review is positive for osteoarthritis of the spine with spondylosis. She denies other joint pains. She has a BMI of 22.9 and this has dropped and she has lost some weight over the course of the last 2 years I believe related to stress. A year ago, she was 28. We will watch this closely. Blood pressure is 114/73, heart rate 81, respirations 14, O2 sat 100, and pain intensity 5. She is not a fall risk, is on no blood thinners, and does not have a history of hypertension. She signed an opioid agreement and reviewed and signed it again on 05/01/2019 and has completed an opioid risk tool scoring 0. Her functional assessment tool is very optimistic . SOCIAL HISTORY: She denies use of tobacco, drinks alcohol every so often in social setting. PHYSICAL EXAMINATION: GENERAL: She appears to be more and her weight loss is evident. VITAL SIGNS: As noted. She moves independently and walks with an antalgic gait. It is hard for her to stand upright. CHEST: Clear. CARDIAC: Rhythm is regular. MUSCULOSKELETAL: Examination of the spine reveals tenderness across the lumbosacral segment, pain with backward extension and forward flexion. Straight leg raising is bilaterally positive. IMPRESSION: Chronic low back pain with radiculopathy. [facility] [address] [place] [address] PAIN MANAGEMENT CONSULTATION Name: DEYVI BASURTO AVANI Room #: REG EDGARAmy Carney#: [id number] Admission: 09/25/19 Attend Phys: Toi Valdes MD Discharge: Date of : 47 Report #: [id number] PROCEDURE: Lumbar epidural injection L5-S1 under fluoroscopic guidance. She was taken to fluoroscopic suite for treatment, placed prone, skin prepped with ChloraPrep. Skin was anesthetized over the L5-S1 interspace. Using biplanar fluoroscopic views, I advanced the needle into the epidural space with loss of resistance technique. There was no blood nor CSF aspirated. A 1 mL of Omnipaque injected. Good spread of dye observed into the epidural space followed by 3 mL of 0.5% lidocaine mixed with 40 mg of triamcinolone. She tolerated the procedure well. There were no complications. She was observed in recovery room before discharge for about 45 minutes. She was able to ambulate on her own accord. She was discharged with followup visit planned as needed in 1-2 months. I did provide a prescription for her for tizanidine, which she uses at night to help with sleep. By: [id number] Toi Valdes MD /nt
[2019-09-25 13:17] VITALS: BP 114/73
--- NOTE | 2019-09-25 13:38 | NUR ---
Pain Clinic Assessment: 1. History of Osteoarthritis: SPINE History of Rheumatoid Arthritis: DENIES 2. Height: 5 ft. 4 in. 162.6 cm. Weight: 133.4 lb. oz. 60.510 kg. Patient's BMI: 22.9 3. Vital Signs: BP: 114/73 Pulse: 81 Resp: 14 Temp: 02 Sat: 100 ECG Mon: 4. Pain Intensity: 5 5. Fall Risk: Dizziness: N Needs help standing or walking: N Fallen in the last 3 months: N Fall risk comments: 6. Patient on Blood Thinner: None 7. History of Hypertension: N 8. Opioid Therapy greater than 6 weeks: Y Opiate Contract Signed: 05/01/19 9. Risk Assessment Tool Provided: 0-LOW 10. Functional Assessment Tool: 11. Recreational Drug Use: Never Drug Type: Tobacco Use: Former Smoker Tobacco Type: Amount or Packs/day: How Many Years: Alcohol Use: Yes Frequency: Monthly Quant:
== END | disposition home or self-care (01) ==
LOC: PAIN 06:32
DX: M54.16 Radiculopathy, lumbar region (principal); M48.061 Spinal stenosis, lumbar region without neurogenic claudication; G89.29 Other chronic pain; I10 Essential (primary) hypertension; Z98.890 Other specified postprocedural states; Z79.891 Long term (current) use of opiate analgesic; Z79.899 Other long term (current) drug therapy; Z87.891 Personal history of nicotine dependence; Z88.8 Allergy status to other drugs, medicaments and biological substances

== ENCOUNTER → 2019-11-27 | Outpatient (CLI) | payer OTHER ==
[~2019-11-27] VITALS: Ht 162.6 cm; Wt 61.1 kg
--- NOTE | ~2019-11-27 | HPC ---
[facility] [place] [address] PAIN MANAGEMENT CONSULTATION Name: DEYVI BASURTO Room #: REG Amy M.R.#: [id number] Admission: 11/27/19 Attend Phys: Toi Valdes MD Discharge: Date of : 47 Report #: [id number] THIS REPORT FOR: cc: Libia Jacobs MD,iLbia Valdes,Toi Shi MD ~ CC: Toi Jacobs MD DATE OF SERVICE: 11/27/2019 Followup visit for low back pain with radiculopathy and spinal stenosis. This is a followup visit for the patient who would like another epidural injection. It has been a bit over 2 months. Her aunt has recently . I did not know and I offered my condolences. I have cared for both her mother and her aunt for a number of years. The patient, as I have noted throughout this record, has been a wonderful caregiver of both of them and has made a number of sacrifices. She continues to care for her mother who is becoming more bedfast. Epidural injections allow her to keep going. I have been providing them at the level of L4-L5. Her most recent MRI scan shows quite significant neuroforaminal narrowing at L3-L4, L5-S1, right worse than left. [id number] stenosis noted at L5-S1. PQRS review positive for spinal spondylosis. Her BMI is 23, blood pressure 134/85, heart rate 83, O2 sat 100%. Pain intensity 5/10. She is not a fall risk and has not fallen in the last 3 months. She does not take blood thinners nor is she treated for hypertension. She has completed an opioid risk tool and her score is 0. Her last opioid prescription from our clinic was many months ago, oxycodone 10/325, 90 tablets, she uses sparingly and cautiously. She understands side effects and the importance of safeguarding them. She continues to smoke. I cautioned her again today about the longstanding consequences of this. She uses alcohol only occasionally in social settings. IMPRESSION: Chronic low back pain with radiculopathy, severe spinal stenosis. PROCEDURE: L4-L5 epidural injection under fluoroscopic guidance. DESCRIPTION OF PROCEDURE: After informed consent, she was taken to fluoroscopic [address] [address] PAIN MANAGEMENT CONSULTATION Name: DEYVI BASURTO Room #: REG [facility].#: [id number] Admission: 11/27/19 Attend Phys: Toi Valdes MD Discharge: Date of : 47 Report #: [id number] suite for treatment, placed prone, skin prepped with ChloraPrep. Skin anesthetized over the L4-L5 interspace. A 20-gauge Tuohy epidural needle advanced into the epidural space with loss of resistance. There was no blood nor CSF aspirated. A 1 mL of Omnipaque injected. Good spread of dye observed into the epidural space, followed by 3 mL of 0.5% lidocaine mixed with 80 mg of triamcinolone. She tolerated the procedure well and was observed for 45 minutes and discharged. Follow up as needed. By: [id number] Toi Valdes MD /nt
[2019-11-27 10:30] VITALS: BP 134/85
--- NOTE | 2019-11-27 10:49 | NUR ---
Pain Clinic Assessment: 1. History of Osteoarthritis: SPINE History of Rheumatoid Arthritis: DENIES 2. Height: 5 ft. 4 in. 162.6 cm. Weight: 134.8 lb. oz. 61.145 kg. Patient's BMI: 23.1 3. Vital Signs: BP: 134/85 Pulse: 83 Resp: 16 Temp: 02 Sat: 100 ECG Mon: 4. Pain Intensity: 5 5. Fall Risk: Dizziness: N Needs help standing or walking: N Fallen in the last 3 months: N Fall risk comments: 6. Patient on Blood Thinner: None 7. History of Hypertension: N 8. Opioid Therapy greater than 6 weeks: Y Opiate Contract Signed: 05/01/19 9. Risk Assessment Tool Provided: 0-LOW 10. Functional Assessment Tool: 11. Recreational Drug Use: Never Drug Type: Tobacco Use: Former Smoker Tobacco Type: Cigarettes Amount or Packs/day: 1/2 ppd How Many Years: 30 Alcohol Use: Yes Frequency: Special Occasions Quant: 1-2 special occasions
== END | disposition home or self-care (01) ==
LOC: PAIN 06:46
DX: M54.16 Radiculopathy, lumbar region (principal); M48.061 Spinal stenosis, lumbar region without neurogenic claudication; G89.29 Other chronic pain; Z98.890 Other specified postprocedural states; Z87.891 Personal history of nicotine dependence; Z88.6 Allergy status to analgesic agent; Z79.82 Long term (current) use of aspirin; Z79.899 Other long term (current) drug therapy

== ENCOUNTER → 2020-02-22 | Outpatient (CLI) | payer OTHER ==
[~2020-02-22] VITALS: Ht 162.6 cm; Wt 59.1 kg
[~2020-02-22] MED LIST changes: +HYDROCODON-ACE1 EAC7 PO; +TRAMADOL HCL50 MG PO; +ZANAFLEX4 M2 PO
--- NOTE | ~2020-02-22 | HPC ---
[facility] [address] [place] [address] PAIN MANAGEMENT CONSULTATION Name: DEYVI BASURTO Room #: REG DORY Roxana.#: [id number] Admission: 02/22/20 Attend Phys: Toi Valdes MD Discharge: Date of : 47 Report #: [id number] THIS REPORT FOR: cc: Libia Jacobs MD,Libia Valdes,Toi Shi MD ~ CC: Toi Jacobs MD DATE OF SERVICE: 02/22/2020 Followup visit for chronic intractable pain. The patient is here today complaining of pain, both in her neck with radiation symptoms of numbness and pain into the arms consistent with radiculopathy as well as in her low back where she has significant changes of spondylosis and x-ray evidence of spinal stenosis. She has responded favorably to intermittent injections. We performed them no more frequently than every 2 months. Today, it is her arms that are bothering her the most. She would like an injection. Dr. Jacobs provides tramadol for her which she takes carefully under her direction. I have in the past provided her with hydrocodone and she uses it very infrequently, 1 tablet every few days when the pain is extreme and severe. I am willing to provide her with an additional 20 tablets today. I communicate with Dr. Jacobs through these dictations. I believe that this is a modest use of an important pain medication that helps her when her pain is severe. I remarked again today on her remarkable filial piety. She has taken care of her family members in a loving manner for many years. Her aunt this year. She continues to care for her mother. PQRS REVIEW: Positive for spinal osteoarthritis and spondylosis. BMI is 22.3. Weight has stabilized. Blood pressure 144/76, heart rate 94, pain intensity 5/10. She has not fallen in the last several months. Denies use of blood thinning medications and does not require treatment for hypertension. She is on an opioid agreement, which she signed in 04/2019. I had her complete an opioid risk tool, her score is 0. We suggest at the low doses that she is using. Her risk of addiction is quite low. She also scores her functional assessment tool at a 3/70. She is very stoic. She is a former smoker. Continues to drink some alcohol and occasional social setting. IMPRESSION: 1. Chronic low back pain with spinal stenosis. [facility] [address] [place] [address] PAIN MANAGEMENT CONSULTATION Name: DEYVI BASURTO AVANI [id number] Admission: 02/22/20 Attend Phys: Toi Valdes MD Discharge: Date of : 47 Report #: [id number] 2. Cervicalgia with radiculopathy, bilateral C6-C7 distribution. RECOMMENDATION: Cervical epidural injection under fluoroscopic guidance. PROCEDURE: She was taken to fluoroscopic suite for the injection, placed prone, skin prepped with ChloraPrep. Skin anesthetized over the C6-C7 interspace. A 20-gauge Tuohy epidural needle was advanced on the first attempt into the epidural space with loss of resistance technique. There was no blood or CSF aspirated. A 1 mL of Omnipaque injected with excellent spread of dye observed in the epidural space, was followed by 3 mL of 0.5% lidocaine mixed with 80 mg triamcinolone. She tolerated the procedure well and was observed for 45 minutes and discharged. Prescription was sent for 20 tablets of hydrocodone 5/325 mg. We discussed the important aspects of carefully safeguarding these medicines to keep them away from others. Her opioid agreement was reviewed in the recovery room. By: [id number] Toi Vadles MD /nt
[2020-02-22 10:06] VITALS: BP 144/76
--- NOTE | 2020-02-22 10:17 | NUR ---
Pain Clinic Assessment: 1. History of Osteoarthritis: SPINE History of Rheumatoid Arthritis: DENIES 2. Height: 5 ft. 4 in. 162.6 cm. Weight: 130.2 lb. oz. 59.058 kg. Patient's BMI: 22.3 3. Vital Signs: BP: 144/76 Pulse: 94 Resp: 14 Temp: 02 Sat: 100 ECG Mon: 4. Pain Intensity: 5 5. Fall Risk: Dizziness: N Needs help standing or walking: N Fallen in the last 3 months: N Fall risk comments: 6. Patient on Blood Thinner: None 7. History of Hypertension: N 8. Opioid Therapy greater than 6 weeks: Y Opiate Contract Signed: 05/01/19 9. Risk Assessment Tool Provided: 0-LOW 10. Functional Assessment Tool: 11. Recreational Drug Use: Never Drug Type: Tobacco Use: Former Smoker Tobacco Type: Amount or Packs/day: How Many Years: Alcohol Use: Yes Frequency: Quant:
== END | disposition home or self-care (01) ==
LOC: PAIN 01-29 06:52
DX: M54.12 Radiculopathy, cervical region (principal); G89.29 Other chronic pain; M54.5 Low back pain; M48.061 Spinal stenosis, lumbar region without neurogenic claudication; Z98.890 Other specified postprocedural states; Z87.891 Personal history of nicotine dependence; Z79.899 Other long term (current) drug therapy

== ENCOUNTER → 2020-04-25 | Outpatient (CLI) | payer OTHER ==
[~2020-04-25] VITALS: Ht 162.6 cm; Wt 61.4 kg
--- NOTE | ~2020-04-25 | HPC ---
[facility] [place] [address] PAIN MANAGEMENT CONSULTATION Name: DEYVI BASURTO Room #: REG Amy M.Godwin.#: [id number] Admission: 04/25/20 Attend Phys: Toi Valdes MD Discharge: Date of : 47 Report #: [id number] THIS REPORT FOR: cc: Libia Jacobs MD,Tio Avila MD, MD ~ CC: Toi Jacobs MD DATE OF SERVICE: 04/25/2020 Followup visit for chronic lumbar radiculopathy secondary to severe spinal stenosis, L4-L5. I am seeing the patient periodically for pain related to degenerative spine disease. She has had cervical and lumbar epidural injections. Her last lumbar injection was in November and she received substantial pain relief for her radicular symptoms. She has severe spinal stenosis noted on MRI most recently in 2018. As discussed in multiple places throughout this record, she is not in a position to have surgery as she helps care for her aging mother who is in her 90s. At one time, she was caring for both her mother and her aunt. Fortunately, epidural injections have provided her significant improvement and allowing her to return back to her day-to-day functions. She is wearing a mask today due to COVID restrictions and they are being careful and safe in the home. She scores her pain today as an 8/10. Her PQRS review shows that her BMI is steady at around 23.2. She has lost some weight over the years, but has stabilized. Her blood pressure 142/82, heart rate 72, respirations 14, O2 sat 100% on room air. She is using an umbrella as a cane this morning to prevent a fall. She does feel weak, but has been very cautious. She would probably be considered a fall risk due to pain and weakness, but has not fallen. We discussed the importance of maintaining good careful stability and using a support device if necessary. She is on no blood thinners. She has no history of hypertension. I do provide opioids for her under terms of written agreement. She says she does not need medications today. Her risk assessment tool score is 0. She denies use of tobacco, but is a former tobacco user. She is to remain tobacco free. She drinks alcohol occasionally on special occasions. IMPRESSION: Chronic low back pain with radiculopathy secondary to severe stenosis, L4-L5. [facility] [address] [place] [address] PAIN MANAGEMENT CONSULTATION Name: DEYVI BASURTO Room #: REG CLAmy Carney#: [id number] Admission: 04/25/20 Attend Phys: Toi Valdes MD Discharge: Date of : 47 Report #: [id number] PROCEDURE: Epidural steroid injection, L4-L5 under fluoroscopic guidance, right paramedian approach. DESCRIPTION OF PROCEDURE: After informed consent, she was taken to fluoroscopic suite, placed prone, skin prepped with ChloraPrep. Skin anesthetized over the L4-L5 interspace. Using biplanar fluoroscopic views, I advanced needle into the epidural space. Good loss of resistance obtained. No blood nor CSF was aspirated. Then, 1 mL of Omnipaque injected with an excellent epidurogram, was followed by 3 mL of 0.5% lidocaine mixed with 80 mg of triamcinolone. She tolerated the procedure well, was observed for 45 minutes and discharged. There were no complications. Followup visit planned as needed. By: [id number] Toi Valdes MD /nt
[2020-04-25 10:41] VITALS: BP 142/82
--- NOTE | 2020-04-25 10:55 | NUR ---
Pain Clinic Assessment: 1. History of Osteoarthritis: SPINE History of Rheumatoid Arthritis: DENIES 2. Height: 5 ft. 4 in. 162.6 cm. Weight: 135.4 lb. oz. 61.417 kg. Patient's BMI: 23.2 3. Vital Signs: BP: 142/82 Pulse: 72 Resp: 14 Temp: 02 Sat: 100 ECG Mon: 4. Pain Intensity: 8 5. Fall Risk: Dizziness: N Needs help standing or walking: N Fallen in the last 3 months: N Fall risk comments: 6. Patient on Blood Thinner: None 7. History of Hypertension: N 8. Opioid Therapy greater than 6 weeks: Y Opiate Contract Signed: 05/01/19 9. Risk Assessment Tool Provided: 0-LOW 10. Functional Assessment Tool: 11. Recreational Drug Use: Never Drug Type: Tobacco Use: Former Smoker Tobacco Type: Amount or Packs/day: How Many Years: Alcohol Use: Yes Frequency: Special Occasions Quant: 1
== END | disposition home or self-care (01) ==
LOC: PAIN 06:51
PROVIDERS: ATTEND Anesthesiology Pain Medicine
DX: M54.16 Radiculopathy, lumbar region (principal); G89.29 Other chronic pain; M48.061 Spinal stenosis, lumbar region without neurogenic claudication

== ENCOUNTER → 2020-10-03 | Outpatient (CLI) | payer OTHER ==
[~2020-10-03] VITALS: Ht 162.6 cm; Wt 61.0 kg
[2020-10-03 09:01] VITALS: BP 144/71
--- NOTE | 2020-10-03 09:10 | NUR ---
Pain Clinic Assessment: 1. History of Osteoarthritis: SPINE History of Rheumatoid Arthritis: DENIES 2. Height: 5 ft. 4 in. 162.6 cm. Weight: 134.4 lb. oz. 60.963 kg. Patient's BMI: 23.1 3. Vital Signs: BP: 144/71 Pulse: 71 Resp: 16 Temp: 02 Sat: 100 ECG Mon: 4. Pain Intensity: N/A 5. Fall Risk: Dizziness: N Needs help standing or walking: N Fallen in the last 3 months: N Fall risk comments: 6. Patient on Blood Thinner: None 7. History of Hypertension: N 8. Opioid Therapy greater than 6 weeks: Y Opiate Contract Signed: 05/01/19 9. Risk Assessment Tool Provided: 0-LOW 10. Functional Assessment Tool: 11. Recreational Drug Use: Never Drug Type: Tobacco Use: Former Smoker Tobacco Type: Cigarettes Amount or Packs/day: 2 CIGS/DAY How Many Years: Alcohol Use: Yes Frequency: Special Occasions Quant: 1
== END | disposition home or self-care (01) ==
LOC: PAIN 06:35
PROVIDERS: ATTEND Anesthesiology Pain Medicine
DX: M54.16 Radiculopathy, lumbar region (principal); M48.061 Spinal stenosis, lumbar region without neurogenic claudication; G89.29 Other chronic pain; Z98.890 Other specified postprocedural states; Z79.899 Other long term (current) drug therapy; Z87.891 Personal history of nicotine dependence; Z88.8 Allergy status to other drugs, medicaments and biological substances

== ENCOUNTER → 2020-10-07 | Outpatient (CLI) | payer OTHER | LOC: MRI 10:06 | PROVIDERS: ATTEND Anesthesiology Pain Medicine | DX: M50.123 Cervical disc disorder at C6-C7 level with radiculopathy (principal); M50.121 Cervical disc disorder at C4-C5 level with radiculopathy; M50.11 Cervical disc disorder with radiculopathy, high cervical region; M48.02 Spinal stenosis, cervical region; M43.8X2 Other specified deforming dorsopathies, cervical region ==